=== PATIENT | female | born 1960 | race Caucasian/White ===

== ENCOUNTER 2017-08-18 06:07 | Outpatient (CLI) | payer OTHER, MEDICAID | END 2017-08-18 06:08 | disposition critical access hospital (66) | LOC: EMS 06:07 | PROVIDERS: ATTEND Surgery | DX: R06.02 Shortness of breath (principal); R04.2 Hemoptysis | CPT/HCPCS: A0425; A0427 ==

== ENCOUNTER 2017-08-18 07:11 | Inpatient (IN) | payer OTHER, MEDICAID ==
--- NOTE | 2017-08-18 07:36 | ED Physician Documentation ---
PD HPI URI - Stated complaint Stated Complaint: SOA - Chief complaint Chief Complaint: Resp - History obtained from History obtained from: Patient, EMS - History of Present Illness Timing - onset: Enter time (199), Today Timing duration: Hours Timing details: Abrupt onset, Still present Associated symptoms: Fever, Nasal congestion, Productive cough, Hemoptysis, Chest pain, Dyspnea Improves by: Rest, MDI/nebulizer, O2 Worsened by: Activity Similar symptoms before: Diagnosis (pneumonia) Recently seen: Not recently seen - Additional information Additional information: 56-year-old female is recently moved here from [place] has a history of pneumonia recurrent and COPD with PTSD. She is on a number of psychiatric medications and uses inhalers daily. She is developed acute cough beginning at 2:00 in the morning and she is coughing up some red blood. She has become short of breath and she has some improvement with oxygen as well as her rescue inhaler. She is certain she has pneumonia and feels that this morning she has a low-grade fever as well. Review of Systems Constitutional: reports: Fever Eyes: denies: Decreased vision Ears: denies: Ear pain Nose: reports: Rhinorrhea / runny nose, Congestion Throat: denies: Sore throat Cardiac: reports: Chest pain / pressure. denies: Palpitations, Pedal edema, Calf pain Respiratory: reports: Dyspnea, Cough, Wheezing GI: denies: Abdominal Pain, Nausea, Vomiting : reports: Incontinent. denies: Dysuria, Frequency PD PAST MEDICAL HISTORY - Past Medical History Cardiovascular: NM - Past Surgical History Past Surgical History: Yes General: Bowel surgery - Present Medications Home Medications: Ambulatory Orders Medication Instructions Recorded Confirmed Albuterol Sulfate [Albuterol 2 puffs INH Q4H PRN 10/17/13 08/18/17 Sulfate Hfa] Tiotropium [place] [Spiriva] 1 puffs INH DAILY 10/17/13 08/18/17 Atorvastatin Calcium 40 mg PO QPM 08/18/17 08/18/17 Dicyclomine [Bentyl] 10 mg PO TID PRN 08/18/17 08/18/17 Donepezil [Aricept] 5 mg PO QPM 08/18/17 08/18/17 Escitalopram Oxalate [Lexapro] 20 mg PO QPM 08/18/17 08/18/17 Fluticasone [Flonase] 1 sprays ULYSSES BID PRN 08/18/17 08/18/17 Fluticasone/Salmeterol [Advair 1 puffs INH BID 08/18/17 08/18/17 250-50 Diskus] Ibuprofen [Motrin] 800 mg PO TIDWM PRN 08/18/17 08/18/17 Indomethacin [Indocin] 25 mg PO BIDWM PRN 08/18/17 08/18/17 Metoprolol Tartrate [Lopressor] 25 mg PO QPM 08/18/17 08/18/17 Mirtazapine [Remeron] 15 mg PO HS 08/18/17 08/18/17 Morphine ER 60 mg PO 1400,2200 08/18/17 08/18/17 Morphine Sulfate [Morphine Sulfate 45 mg PO 0600 08/18/17 08/18/17 ER] Nitroglycerin [Nitrostat] 0.4 mg SL Q5MIN PRN 08/18/17 08/18/17 Omeprazole [PriLOSEC] 20 mg PO DAILY PRN 08/18/17 08/18/17 Pantoprazole Sodium [Protonix] 40 mg PO QDAC 08/18/17 08/18/17 Prazosin HCl [Minipress] 5 mg PO QPM 08/18/17 08/18/17 Prazosin HCl [Prazosin HCl] 2 mg PO DAILY 08/18/17 08/18/17 Topiramate [Topiramate] 50 mg PO QPM 08/18/17 08/18/17 Valacyclovir HCl [Valacyclovir] 500 mg PO DAILY 08/18/17 08/18/17 carBAMazepine ER [TEGretol XR] 200 mg PO BID 08/18/17 08/18/17 lamoTRIgine [Lamictal] 200 mg PO BID 08/18/17 08/18/17 tiZANidine [Zanaflex] 4 mg PO BID PRN 08/18/17 08/18/17 - Allergies Allergies/Adverse Reactions: Allergies Allergy/AdvReac Type Severity Reaction Status Date / Time diphtheria,tetanus,poliomyelitis Allergy Unknown Verified 10/17/13 16:44 va [Dip,Tet,Polio Vaccine] - Social History Does the pt smoke?: Yes Does the pt drink ETOH?: Yes PD ED PE NORMAL - Vitals Vital signs reviewed: Yes (hypertensive diastolic ) - General General: Alert and oriented X 3, Well developed/nourished - HEENT HEENT: Atraumatic, PERRL, EOMI, Ears normal, Other (dry mucous membranes ) - Neck Neck: Supple, no meningeal sign, No bony TTP - Cardiac Cardiac: RRR, No murmur - Respiratory Respiratory: Other (tachypneic at rest with rhonchi in the right base. ) - Back Back: No CVA TTP, No spinal TTP - Derm Derm: Normal color, Warm and dry, No rash - Extremities Extremities: No deformity, No edema - Neuro Neuro: No motor deficit, No sensory deficit Eye Opening: Spontaneous Motor: Obeys Commands Verbal: Oriented GCS Score: 15 - Psych Psych: Normal mood, Normal affect Results - Vitals Vitals: Vital Signs - 24 hr 08/18/17 08/18/17 07:21 09:44 Temperature 37.2 C Heart Rate 95 93 Respiratory 22 22 Rate Blood Pressure 118/87 H 119/59 L O2 Saturation 94 95 Oxygen O2 Source Nasal cannula Oxygen Flow Rate 4 - Labs Labs: Laboratory Tests 08/18/17 08/18/17 08/18/17 07:57 08:38 08:38 WBC 6.2 RBC 3.78 L Hgb 9.5 L Hct 31.0 L MCV 82.0 MCH 25.0 L MCHC 30.5 L RDW 17.4 H Plt Count 186 MPV 7.3 L Neut # (Auto) 5.3 Lymph # (Auto) 0.5 L [place] # (Auto) 0.4 Eos # (Auto) 0.0 Baso # (Auto) 0.0 Absolute Nucleated RBC 0.00 Nucleated RBC % 0.0 Sodium 137 Potassium 3.6 Chloride 106 Carbon Dioxide 23 Anion Gap 8.0 BUN 15 Creatinine 0.6 Estimated GFR (MDRD) 103 Glucose 115 H Calcium 7.9 L Total Bilirubin 0.4 AST 28 ALT 24 Alkaline Phosphatase 164 H Troponin I Total Protein 6.4 L Albumin 2.9 L Globulin 3.5 Albumin/Globulin Ratio 0.8 L Lipase 19 L Urine Color YELLOW Urine Clarity CLEAR Urine pH 7.0 Ur Specific [place] 1.015 Urine Protein NEGATIVE Urine Glucose (UA) NEGATIVE Urine Ketones NEGATIVE Urine Occult Blood NEGATIVE Urine Nitrite NEGATIVE Urine Bilirubin NEGATIVE Urine Urobilinogen 0.2 (NORMAL) Ur Leukocyte Esterase NEGATIVE Ur Microscopic Review NOT INDICATED Urine Culture Comments NOT INDICATED 08/18/17 08:38 WBC RBC Hgb Hct MCV MCH MCHC RDW Plt Count MPV Neut # (Auto) Lymph # (Auto) [place] # (Auto) Eos # (Auto) Baso # (Auto) Absolute Nucleated RBC Nucleated RBC % Sodium Potassium Chloride Carbon Dioxide Anion Gap BUN Creatinine Estimated GFR (MDRD) Glucose Calcium Total Bilirubin AST ALT Alkaline Phosphatase Troponin I < 0.04 Total Protein Albumin Globulin Albumin/Globulin Ratio Lipase Urine Color Urine Clarity Urine pH Ur Specific [place] Urine Protein Urine Glucose (UA) Urine Ketones Urine Occult Blood Urine Nitrite Urine Bilirubin Urine Urobilinogen Ur Leukocyte Esterase Ur Microscopic Review Urine Culture Comments - Rads (name of study) 2 veiw chest Radiology: Prelim report reviewed (Impression: 1. Multi lobar pneumonia largely throughout the right lung.), EMP read indepedently, See rad report Procedures - IVC sono (time) 0750 Bedside IVC sono: IVC measures (cm) (0.93), IVC collapsed c insp (cm) (complete) , Dehydration (est 1.5 liter deficit) PD MEDICAL DECISION MAKING - ED course Complexity details: reviewed old records, reviewed results, re-evaluated patient , considered differential, d/w patient ED course: 56-year-old female with COPD and recurrent pneumonia has developed pneumonia again and she is hypoxic on room air. She has the appearance of extensive pneumonia in the right lung and she is on a host of medications. She has recently moved to the area and has established care with a new primary care physician. - Sepsis Event Vital Signs: Vital Signs - 24 hr 08/18/17 08/18/17 07:21 09:44 Temperature 37.2 C Heart Rate 95 93 Respiratory 22 22 Rate Blood Pressure 118/87 H 119/59 L O2 Saturation 94 95 Oxygen O2 Source Nasal cannula Oxygen Flow Rate 4 Departure - Departure Disposition: [facility] DC/Xfer Clinical Impression: Pneumonia Qualifiers: Pneumonia type: due to unspecified organism Laterality: right Lung location: lower lobe of lung Qualified Code(s): J18.1 - Lobar pneumonia, unspecified organism Condition: Stable Discharge Date/Time: 08/18/17 11:25
[2017-08-18] MEDS ORDERED: DEXAMETHASONE 10 MG/ML VIAL PO STA (07:52)
[2017-08-18] MEDS ORDERED: SODIUM CHLORIDE 0.9% 1,000 ML IV ONE (07:56)
[2017-08-18 08:08] LABS: BILIRUBIN,URINE NEGATIVE (NEGATIVE); CLARITY,URINE CLEAR (CLEAR); GLUCOSE, URINE (UA) NEGATIVE (NEGATIVE); KETONES,URINE (UA) NEGATIVE (NEGATIVE); LEUKOCYTE ESTERASE, URINE NEGATIVE (NEGATIVE); NITRITE,URINE NEGATIVE (NEGATIVE); OCCULT BLOOD,URINE NEGATIVE (NEGATIVE); PROTEIN,URINE NEGATIVE (NEGATIVE); UROBILINOGEN,URINE 0.2 (NORMAL) E.U./dL (NORMAL)
[2017-08-18] MEDS ORDERED: CHERRY SYRUP 10 ML UDC PO ONE (08:20)
--- NOTE | 2017-08-18 08:30 | XRAY Report ---
Procedure Date: 08/18/2017 Accession Number: [id number] / [id number] Procedure: XR - Chest 2 View X-Ray CPT Code: 04105 FULL RESULT: EXAM: CHEST RADIOGRAPHY EXAM DATE: 08/18/2017 07:59 AM. CLINICAL HISTORY: R lower lung rhonchi. COMPARISON: None. TECHNIQUE: 2 views. FINDINGS: Lungs/Pleura: Extensive right lung airspace opacities largely in the right lower lobe. Left midlung airspace opacities are also present. Mediastinum: Heart size is normal. Aorta is tortuous. Other: Degenerative changes of the thoracic spine. Status post cholecystectomy. IMPRESSION: 1. Multilobar pneumonia largely throughout the right lung. RADIA
[2017-08-18 08:46] LABS: BASOPHILS % (AUTO) 0.6 %; EOSINOPHILS % (AUTO) 0.3 %; HGB - HEMOGLOBIN 9.5 g/dL (12.0-16.0); LYMPHOCYTES # (AUTO) 0.5 10^3/uL (1.5-3.5); LYMPHOCYTES % (AUTO) 7.4 %; MEAN CORPUSCULAR HGB CONC 30.5 g/dL (32.0-36.0); MEAN PLATELET VOLUME 7.3 fL (7.9-10.8); MONOCYTES # (AUTO) 0.4 10^3/uL (0.0-1.0); MONOCYTES % (AUTO) 6.5 %; NEUTROPHILS # (AUTO) 5.3 10^3/uL (1.5-6.6); NEUTROPHILS % (AUTO) 85.2 %; PLT - PLATELET COUNT 186 10^3/uL (130-450); RED BLOOD COUNT 3.78 10^6/uL (4.20-5.40); RED CELL DISTRIBUTION WIDTH 17.4 % (12.0-15.0); WHITE BLOOD COUNT 6.2 x10^3/uL (4.8-10.8)
[2017-08-18 09:00] LABS: ALBUMIN 2.9 g/dL (3.2-5.5); ALBUMIN/GLOBULIN RATIO 0.8 (1.0-2.2); BILIRUBIN,TOTAL 0.4 mg/dL (0.2-1.0); CALCIUM 7.9 mg/dL (8.5-10.3); CREATININE 0.6 mg/dL (0.4-1.0); TOTAL PROTEIN 6.4 g/dL (6.7-8.2)
[2017-08-18] MEDS ORDERED: ACETAMINOPHEN 325 MG TABLET PO PRN (10:34)
[2017-08-18] MEDS ORDERED: oxyCODONE 5 MG TABLET PO PRN (10:34)
[2017-08-18] MEDS ORDERED: ZOLPIDEM 5 MG TABLET PO PRN (10:34)
[2017-08-18] MEDS ORDERED: PROCHLORPERAZINE 10 MG/2 ML VIAL IVP PRN (10:34)
[2017-08-18] MEDS ORDERED: ONDANSETRON 4 MG/2 ML VIAL IVP PRN (10:34)
[2017-08-18] MEDS ORDERED: methylPREDNISolone SUCCINATE 40 MG/ML VIAL IVP SCH (11:00)
[2017-08-18] MEDS: oxyCODONE 5 MG TABLET PO PRN ×3 (11:39→20:32)
[2017-08-18] MEDS: SODIUM CHLORIDE 0.9% 1,000 ML IV SCH ×2 (11:51→18:32)
[2017-08-18] MEDS: cefTRIAXone 2 GM in SODIUM CHLORIDE 0.9% MINIBAG 100 ML IV SCH (12:55)
[2017-08-18] MEDS: AZITHROMYCIN INJ 500 MG in SODIUM CHLORIDE 0.9% 250 ML IV SCH (14:04)
[2017-08-18] MEDS: methylPREDNISolone SUCCINATE 40 MG/ML VIAL IVP SCH ×2 (14:56→20:30)
[2017-08-18] MEDS: IPRATROPIUM/ALBUTEROL 3 ML NEB INH SCH ×2 (15:09→20:16)
[2017-08-18] MEDS ORDERED: tiZANidine 4 MG TABLET PO PRN (15:37)
[2017-08-18] MEDS ORDERED: DICYCLOMINE 10 MG CAPSULE PO PRN (15:37)
[2017-08-18] MEDS ORDERED: FLUTICASONE NASAL SPRAY NAS PRN (15:37)
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
[2017-08-18] MEDS: MORPHINE ER 60 MG TABLET PO SCH ×2 (17:02→22:25)
[2017-08-18] MEDS: SODIUM CHLORIDE FLUSH 0.9% 10 ML SYRINGE IVP SCH (17:02)
[2017-08-18] MEDS: SACCHAROMYCES BOULARDII 250 MG CAPSULE PO SCH (17:02)
[2017-08-18] MEDS: MORPHINE 2 MG/ML SYRINGE IVP PRN ×2 (18:44→21:16)
[2017-08-18] MEDS: PRAZOSIN 1 MG CAPSULE PO SCH (20:31)
[2017-08-18] MEDS: carBAMazepine ER 200 MG TABLET PO SCH (20:32)
[2017-08-18] MEDS: TOPIRAMATE 25 MG TABLET PO SCH (20:32)
[2017-08-18] MEDS: DONEPEZIL 5 MG TABLET PO SCH (20:32)
[2017-08-18] MEDS: lamoTRIgine 100 MG TABLET PO SCH (20:33)
[2017-08-18] MEDS: METOPROLOL TARTRATE 25 MG TABLET PO SCH (20:33)
[2017-08-18] MEDS: ATORVASTATIN 40 MG TABLET PO SCH (20:33)
[2017-08-18] MEDS: ESCITALOPRAM 10 MG TABLET PO SCH (20:33)
[2017-08-18] MEDS: MIRTAZAPINE 15 MG TABLET PO SCH (20:33)
[2017-08-18] MEDS ORDERED: METOPROLOL SUCCINATE 25 MG TABLET PO SCH (21:00)
[2017-08-19] MEDS: SODIUM CHLORIDE FLUSH 0.9% 10 ML SYRINGE IVP SCH ×4 (01:48→20:21)
[2017-08-19] MEDS: oxyCODONE 5 MG TABLET PO PRN (04:37)
[2017-08-19] MEDS: MORPHINE ER 15 MG TABLET PO SCH (05:50)
[2017-08-19] MEDS: methylPREDNISolone SUCCINATE 40 MG/ML VIAL IVP SCH ×3 (05:51→20:21)
[2017-08-19] MEDS: SODIUM CHLORIDE FLUSH 0.9% 10 ML SYRINGE IVP PRN ×3 (05:51→13:31)
[2017-08-19 06:11] LABS: BASOPHILS % (AUTO) 0.1 %; HGB - HEMOGLOBIN 8.5 g/dL (12.0-16.0); LYMPHOCYTES # (AUTO) 1.2 10^3/uL (1.5-3.5); MEAN CORPUSCULAR HEMOGLOBIN 25.2 pg (27.0-31.0); MEAN CORPUSCULAR HGB CONC 30.6 g/dL (32.0-36.0); MEAN CORPUSCULAR VOLUME 82.2 fL (81.0-99.0); MEAN PLATELET VOLUME 7.6 fL (7.9-10.8); MONOCYTES # (AUTO) 0.4 10^3/uL (0.0-1.0); NEUTROPHILS # (AUTO) 8.5 10^3/uL (1.5-6.6); NEUTROPHILS % (AUTO) 83.9 %; PLT - PLATELET COUNT 191 10^3/uL (130-450); RED BLOOD COUNT 3.36 10^6/uL (4.20-5.40); RED CELL DISTRIBUTION WIDTH 17.1 % (12.0-15.0); WHITE BLOOD COUNT 10.2 x10^3/uL (4.8-10.8)
[2017-08-19 06:30] LABS: CREATININE 0.5 mg/dL (0.4-1.0)
[2017-08-19 06:41] LABS: % IRON SATURATION 3 % (20-50); IRON 10 ug/dL (28-170); TOTAL IRON BINDING CAPACITY 312 ug/dL (250-450); TRANSFERRIN 223 mg/dL (192-382)
[2017-08-19 06:55] LABS: FOLATE 13.92 ng/mL (5.90 - >24.8)
[2017-08-19] MEDS: IPRATROPIUM/ALBUTEROL 3 ML NEB INH SCH ×2 (07:50→11:15)
[2017-08-19] MEDS: SACCHAROMYCES BOULARDII 250 MG CAPSULE PO SCH ×2 (08:38→16:52)
[2017-08-19] MEDS: carBAMazepine ER 200 MG TABLET PO SCH ×2 (08:38→20:24)
[2017-08-19] MEDS: lamoTRIgine 100 MG TABLET PO SCH ×2 (08:39→20:26)
[2017-08-19] MEDS: PRAZOSIN 1 MG CAPSULE PO SCH ×2 (08:39→20:26)
[2017-08-19] MEDS: cefTRIAXone 2 GM in SODIUM CHLORIDE 0.9% MINIBAG 100 ML IV SCH (08:40)
[2017-08-19] MEDS: FAMOTIDINE 20 MG TABLET PO SCH (08:40)
[2017-08-19] MEDS: ENOXAPARIN 40 MG/0.4 ML SYRINGE SUBQ SCH (08:40)
[2017-08-19] MEDS: AZITHROMYCIN INJ 500 MG in SODIUM CHLORIDE 0.9% 250 ML IV SCH (08:50)
[2017-08-19] MEDS ORDERED: PAROXETINE HCL 60 MG PO SCH (09:00)
[2017-08-19] MEDS ORDERED: POLYETHYLENE GLYCOL 3350 17 GM PACKET PO SCH (09:00)
[2017-08-19] MEDS: MORPHINE 2 MG/ML SYRINGE IVP PRN ×3 (11:13→16:29)
[2017-08-19] MEDS: MORPHINE ER 60 MG TABLET PO SCH ×2 (13:37→21:36)
[2017-08-19] MEDS: IPRATROPIUM/ALBUTEROL 3 ML NEB INH PRN ×2 (16:00→21:11)
--- NOTE | 2017-08-19 16:19 | PROVIDER PROGRESS NOTE ---
Assessment/Plan - Problem List (1) CAP (community acquired pneumonia) Qualifiers: Laterality: right Lung location: lower lobe of lung Qualified Code(s): J18.1 - Lobar pneumonia, unspecified organism Assessment/Plan: Pt on empiric iv antibiotics. Will check a sputum sample. (2) COPD exacerbation Assessment/Plan: Continue nebs, steroids (3) Pleuritic chest pain Assessment/Plan: Pt reports that "this pneumonia feels different than previous ones, there is more pain". By this she means pleuritic CP. Will obtain a chest CT to eval for parenchymal lesions and for pulmonary embolism (4) Stool incontinence Assessment/Plan: Pt reports this she has had a gastric bypass and multiple bowel obstructions and has had constipation from narcotics. But she now has stool incontonence progressing more frequently over 1 year until during the past 2 weeks, she started to see stool in every Depends pair, which she has worn for urinary stress incontinence. She has no cramping, bloating or pain. Will check for diarrhea, C diff and culture stool. If negative, may get a surgical consult. (5) Chronic pain Qualifiers: Chronic pain type: chronic pain syndrome Qualified Code(s): G89.4 - Chronic pain syndrome Assessment/Plan: Continue her chronic pain meds (6) Cluster headache Assessment/Plan: Will give prn narcotics. (7) PTSD (post-traumatic stress disorder) Assessment/Plan: Continue her psych meds. (8) History of NE (myocardial infarction) Assessment/Plan: sl NTG prn anginal pain, since she has had 2-3 "small MIs" - Current Meds Current Meds: Current Medications Generic Name Dose Route Start Last Admin Trade Name Freq PRN Reason Stop Dose Admin Albuterol/Ipratropium 3 ml 08/18/17 10:34 08/19/17 16:00 Duoneb INH 3 ml RTQID PRN Administration Wheezing Atorvastatin Calcium 40 mg 08/18/17 21:00 08/18/17 20:33 Lipitor PO 40 mg QPM BOB Administration Carbamazepine 200 mg 08/18/17 21:00 08/19/17 08:38 Tegretol Xr PO 200 mg BID BOB Administration Donepezil HCl 5 mg 08/18/17 21:00 08/18/17 20:32 Aricept PO 5 mg QPM BOB Administration Enoxaparin Sodium 40 mg 08/19/17 09:00 08/19/17 08:40 Lovenox SUBQ 40 mg DAILY BOB Administration Escitalopram Oxalate 20 mg 08/18/17 21:00 08/18/17 20:33 Lexapro PO 20 mg QPM BOB Administration Famotidine 20 mg 08/19/17 09:00 08/19/17 08:40 Pepcid PO 20 mg DAILY BOB Administration Azithromycin 500 mg/ Sodium 250 mls @ 250 mls/hr 08/18/17 13:00 08/19/17 11: 07 Chloride IV Infused DAILY BOB Infusion Ceftriaxone Sodium 2 gm/ 100 mls @ 200 mls/hr 08/18/17 13:00 08/19/17 09:15 Sodium Chloride IV Infused DAILY BOB Infusion Lamotrigine 200 mg 08/18/17 21:00 08/19/17 08:39 Lamictal PO 200 mg BID BOB Administration Methylprednisolone 40 mg 08/18/17 14:00 08/19/17 13:31 Solu-Medrol (40mg Vial) IVP 40 mg TID BOB Administration Metoprolol Tartrate 25 mg 08/18/17 21:00 08/18/17 20:33 Lopressor PO 25 mg QPM BOB Administration Mirtazapine 15 mg 08/18/17 21:00 08/18/17 20:33 Remeron PO 15 mg HS BOB Administration Morphine Sulfate 2 mg 08/18/17 10:34 08/19/17 13:31 Morphine IVP 2 mg Q2H PRN Administration Pain 8 to 10 Morphine Sulfate 60 mg 08/18/17 16:00 08/19/17 13:37 Morphine Er PO 60 mg 1400,2200 BOB Administration Morphine Sulfate 45 mg 08/19/17 06:00 08/19/17 05:50 PO 45 mg 0600 BOB Administration Oxycodone HCl 10 mg 08/18/17 10:34 08/19/17 04:37 Roxicodone PO 10 mg Q4HR PRN Administration Pain 8 to 10 Polyethylene Glycol 17 gm 08/19/17 09:00 08/19/17 08:48 Miralax PO Not Given DAILY BOB Prazosin HCl 5 mg 08/18/17 21:00 08/18/17 20:31 Minipress PO 5 mg QPM BOB Administration Prazosin HCl 2 mg 08/19/17 09:00 08/19/17 08:39 Minipress PO 2 mg DAILY BOB Administration Prochlorperazine Edisylate 10 mg 08/18/17 10:34 08/18/17 21:39 Compazine Inj IVP 10 mg Q6HR PRN Administration Nausea / Vomiting Saccharomyces Savannai 250 mg 08/18/17 17:00 08/19/17 08:38 Florastor PO 250 mg BIDWM BOB Administration Sodium Chloride 10 ml 08/18/17 10:27 08/19/17 13:31 Normal Saline Flush 0.9% IVP 10 ml PRN PRN Administration NEEDED PER PROVIDER ORDERS Sodium Chloride 10 ml 08/18/17 17:00 08/19/17 08:47 Normal Saline Flush 0.9% IVP 10 ml 0100,0900,1700 BOB Administration Topiramate 50 mg 08/18/17 21:00 08/18/17 20:32 Topamax PO 50 mg QPM BOB Administration - Lab Result Fish Bone Diagrams: 08/19/17 05:32 08/19/17 05:32 - Additional Planning My Orders: My Active Orders 08/19/17 CUL, RESPIRATORY [RM] Routine CUL, RESPIRATORY [RM] Urgent CUL, STOOL [CULTURE, STOOL] [RM] Urgent Subjective - Subjective Patient Reports: Feeling Better, Other (Minimal cough, but has sputum that is bloody and rajesh blood. She reports 1-2 weeks of being incontinent of stool.) Objective Vital Signs: Vital Signs - 24 hr 08/18/17 08/18/17 08/18/17 17:01 19:36 20:17 Temperature 36.6 C Heart Rate 81 Heart Rate [ 85 76 Brachial] Respiratory 18 12 Rate Blood Pressure Blood Pressure 127/78 135/68 H [Right Brachial artery] O2 Saturation 97 08/18/17 08/19/17 08/19/17 20:33 00:57 07:50 Temperature 37.0 C Heart Rate 67 Heart Rate [ 67 Brachial] Respiratory 17 20 Rate Blood Pressure 132/78 H Blood Pressure 131/64 H [Right Brachial artery] O2 Saturation 97 08/19/17 08/19/17 08:00 11:15 Temperature 36.4 C L Heart Rate 70 Heart Rate [ 65 Brachial] Respiratory 18 14 Rate Blood Pressure Blood Pressure 131/68 H [Right Brachial artery] O2 Saturation 100 Oxygen O2 Source Nasal cannula I&O (Last 24 Hrs): Intake and Output Totals x24h 08/17/17 08/18/17 08/19/17 23:59 23:59 23:59 Intake Total 2328.333 2106 Output Total 2500 100 Balance -834.141 9926 General: Alert, Oriented x3 HEENT: PERRLA, Mucous membr. moist/pink Neck: Supple, No JVD Neuro: Non Focal Cardiovascular: Regular rate, No murmurs Respiratory: Other (R sided diminished BS, L clear, no wheezing.) Abdomen: Normal bowel sounds, Soft Extremities: No edema - Results Results: Laboratory Results WBC 10.2 x10^3/uL (4.8-10.8) 08/19/17 05:32 RBC 3.36 10^6/uL (4.20-5.40) L 08/19/17 05:32 Hgb 8.5 g/dL (12.0-16.0) L 08/19/17 05:32 Hct 27.6 % (37.0-47.0) L 08/19/17 05:32 MCV 82.2 fL (81.0-99.0) 08/19/17 05:32 MCH 25.2 pg (27.0-31.0) L 08/19/17 05:32 MCHC 30.6 g/dL (32.0-36.0) L 08/19/17 05:32 RDW 17.1 % (12.0-15.0) H 08/19/17 05:32 Plt Count 191 10^3/uL (130-450) 08/19/17 05:32 MPV 7.6 fL (7.9-10.8) L 08/19/17 05:32 Neut # (Auto) 8.5 10^3/uL (1.5-6.6) H 08/19/17 05:32 Lymph # (Auto) 1.2 10^3/uL (1.5-3.5) L 08/19/17 05:32 [place] # (Auto) 0.4 10^3/uL (0.0-1.0) 08/19/17 05:32 Eos # (Auto) 0.0 10^3/uL (0.0-0.7) 08/19/17 05:32 Baso # (Auto) 0.0 10^3/uL (0.0-0.1) 08/19/17 05:32 Absolute Nucleated RBC 0.00 x10^3/uL 08/19/17 05:32 Nucleated RBC % 0.0 /100WBC 08/19/17 05:32 Sodium 141 mmol/L (135-145) 08/19/17 05:32 Potassium 3.3 mmol/L (3.5-5.0) L 08/19/17 05:32 Chloride 113 mmol/L (101-111) H 08/19/17 05:32 Carbon Dioxide 23 mmol/L (21-32) 08/19/17 05:32 Anion Gap 5.0 (6-13) L 08/19/17 05:32 BUN 11 mg/dL (6-20) 08/19/17 05:32 Creatinine 0.5 mg/dL (0.4-1.0) 08/19/17 05:32 Estimated GFR (MDRD) 127 (>89) 08/19/17 05:32 Glucose 129 mg/dL (70-100) H 08/19/17 05:32 Calcium 8.0 mg/dL (8.5-10.3) L 08/19/17 05:32 Iron 10 ug/dL (28-170) L 08/19/17 05:32 TIBC 312 ug/dL (250-450) 08/19/17 05:32 % Saturation 3 % (20-50) L 08/19/17 05:32 Transferrin 223 mg/dL (192-382) 08/19/17 05:32 Ferritin 19.7 ng/mL (11.0-306.8) 08/19/17 05:32 Total Bilirubin 0.4 mg/dL (0.2-1.0) 08/18/17 08:38 AST 28 IU/L (10-42) 08/18/17 08:38 ALT 24 IU/L (10-60) 08/18/17 08:38 Alkaline Phosphatase 164 IU/L (42-121) H 08/18/17 08:38 Troponin I < 0.04 ng/mL (<0.49) 08/18/17 08:38 Total Protein 6.4 g/dL (6.7-8.2) L 08/18/17 08:38 Albumin 2.9 g/dL (3.2-5.5) L 08/18/17 08:38 Globulin 3.5 g/dL (2.1-4.2) 08/18/17 08:38 Albumin/Globulin Ratio 0.8 (1.0-2.2) L 08/18/17 08:38 Lipase 19 U/L (22-51) L 08/18/17 08:38 Vitamin B12 279 pg/mL (180-914) 08/19/17 05:32 Folate 13.92 ng/mL (5.90 - >24.8) 08/19/17 05:32 Urine Color YELLOW 08/18/17 07:57 Urine Clarity CLEAR (CLEAR) 08/18/17 07:57 Urine pH 7.0 PH (5.0-7.5) 08/18/17 07:57 Ur Specific [place] 1.015 (1.002-1.030) 08/18/17 07:57 Urine Protein NEGATIVE mg/dL (NEGATIVE) 08/18/17 07:57 Urine Glucose (UA) NEGATIVE mg/dL (NEGATIVE) 08/18/17 07:57 Urine Ketones NEGATIVE mg/dL (NEGATIVE) 08/18/17 07:57 Urine Occult Blood NEGATIVE (NEGATIVE) 08/18/17 07:57 Urine Nitrite NEGATIVE (NEGATIVE) 08/18/17 07:57 Urine Bilirubin NEGATIVE (NEGATIVE) 08/18/17 07:57 Urine Urobilinogen 0.2 (NORMAL) E.U./dL (NORMAL) 08/18/17 07:57 Ur Leukocyte Esterase NEGATIVE (NEGATIVE) 08/18/17 07:57 Ur Microscopic Review NOT INDICATED 08/18/17 07:57 Urine Culture Comments NOT INDICATED 08/18/17 07:57
[2017-08-19] MEDS ORDERED: NITROGLYCERIN SL 0.4 MG TABLET SL PRN (16:30)
[2017-08-19] MEDS ORDERED: oxyCOD/ACETAMIN 5 MG/325 MG TABLET PO PRN (17:03)
[2017-08-19] MEDS ORDERED: ACETAMINOPHEN 325 MG TABLET PO PRN (17:05)
[2017-08-19] MEDS ORDERED: IOPAMIDOL-300 100 ML VIAL ONE (17:30)
[2017-08-19] MEDS: oxyCOD/ACETAMIN 5 MG/325 MG TABLET PO PRN (18:27)
[2017-08-19] MEDS ORDERED: IOPAMIDOL-300 100 ML VIAL IVP ONE (18:53)
--- NOTE | 2017-08-19 19:21 | CT Report ---
Procedure Date: 08/19/2017 Accession Number: [id number] / [id number] Procedure: CT - Chest Angio (PE) CPT Code: FULL RESULT: EXAM: CT ANGIOGRAM CHEST EXAM DATE: 08/19/2017 06:46 PM. CLINICAL HISTORY: Chest pain COMPARISON: None. TECHNIQUE: Routine helical imaging was performed through the chest in the pulmonary arterial phase. IV Contrast: 80 cc Isovue 300. Reconstructions: Coronal 3-D MIP reconstructions.Sagittal and coronal. In accordance with CT protocol optimization, one or more of the following dose reduction techniques were utilized for this exam: automated exposure control, adjustment of mA and/or KV based on patient size, or use of iterative reconstructive technique. FINDINGS: Pulmonary Arteries: Diagnostic quality: Adequate through the segmental arteries. No evidence for acute or chronic pulmonary emboli. Lungs/Pleura: There is some patchy perihilar groundglass and reticular opacity within the right lung and within the left lower lobe. There is underlying parenchymal lucency which probably represents emphysema. No evidence of lobar infiltrate or effusion. No acute central airway abnormalities. No pneumothorax. Mediastinum: Heart size is normal. There are no enlarged axillary, supraclavicular, mediastinal, or hilar lymph nodes. Thoracic Aorta: Unremarkable. Upper Abdomen: Findings are detailed separately. Other: None. IMPRESSION: 1. No evidence of acute pulmonary embolism. 2. No evidence of thoracic aortic aneurysm or dissection. 3. There is patchy perihilar groundglass and reticular opacity within the right lung and within the medial aspect of the left lower lobe. Differential considerations include atypical infection, diffuse alveolar damage, and NSIP. 4. There is underlying parenchymal lucency which likely represents emphysema. 5. No pneumothorax. 6. Findings within the abdomen and pelvis are detailed separately. RADIA
[2017-08-19] MEDS: METOPROLOL TARTRATE 25 MG TABLET PO SCH (20:24)
[2017-08-19] MEDS: ATORVASTATIN 40 MG TABLET PO SCH (20:24)
[2017-08-19] MEDS: ESCITALOPRAM 10 MG TABLET PO SCH (20:24)
[2017-08-19] MEDS: DONEPEZIL 5 MG TABLET PO SCH (20:24)
[2017-08-19] MEDS: TOPIRAMATE 25 MG TABLET PO SCH (20:26)
[2017-08-19] MEDS: MIRTAZAPINE 15 MG TABLET PO SCH (20:26)
[2017-08-19] MEDS ORDERED: ALBUTEROL NEB 2.5 MG/3 ML INH PRN (22:23)
[2017-08-20] MEDS: SODIUM CHLORIDE FLUSH 0.9% 10 ML SYRINGE IVP PRN ×2 (00:39→06:25)
--- NOTE | 2017-08-20 04:16 | CT Report ---
Procedure Date: 08/19/2017 Accession Number: [id number] / [id number] Procedure: CT - Abdomen/Pelvis W/ CPT Code: FULL RESULT: EXAM: CT ABDOMEN AND PELVIS EXAM DATE: 08/19/2017 06:46 PM. CLINICAL HISTORY: STOOL INCONTINENCE. COMPARISONS: 11/26/2006. TECHNIQUE: Routine helical CT imaging was performed through the abdomen and pelvis. IV contrast: 100 cc Isovue-300. Enteric contrast: No. Reconstructions: Coronal and sagittal. In accordance with CT protocol optimization, one or more of the following dose reduction techniques were utilized for this exam: automated exposure control, adjustment of mA and/or KV based on patient size, or use of iterative reconstructive technique. FINDINGS: Lung Bases: Findings are detailed separately. Liver: Normal. No masses. Gallbladder/Bile Ducts: The gallbladder is surgically absent. There is mild bile duct dilatation which can be within normal limits status post cholecystectomy. No evidence of choledocholithiasis. Spleen: Normal. Pancreas: There is fatty replacement of the pancreas. Adrenal Glands: Normal. Kidneys: Normal. No masses or hydronephrosis. Peritoneal Cavity/Bowel: There is a small hiatal hernia. Patient has undergone partial gastrectomy. There is a segment of markedly dilated small bowel within the left upper quadrant. This could represent postsurgical change. There is moderate to large joint stool within colon. No intraperitoneal free air or free fluid. No enlarged mesenteric or retroperitoneal lymph nodes. No evidence of appendicitis. Pelvic Organs: Normal. The bladder and visualized pelvic organs are within normal limits. Vasculature: No aneurysms or other significant abnormality. Bones: No significant abnormality. Other: None. IMPRESSION: 1. There is moderate to large volume stool within colon. 2. There is a small hiatal hernia. Patient has undergone p prior gastric surgery, possibly gastric bypass. There is a segment of dilated small bowel within the left upper quadrant, possibly jejunojejunal anastomosis. There is no evidence of small bowel obstruction. 3. No acute solid abdominal organ abnormalities are seen. RADIA
[2017-08-20 06:09] LABS: BASOPHILS % (AUTO) 0.3 %; HGB - HEMOGLOBIN 8.7 g/dL (12.0-16.0); LYMPHOCYTES # (AUTO) 1.7 10^3/uL (1.5-3.5); LYMPHOCYTES % (AUTO) 16.6 %; MEAN CORPUSCULAR HEMOGLOBIN 25.1 pg (27.0-31.0); MEAN CORPUSCULAR HGB CONC 30.1 g/dL (32.0-36.0); MEAN CORPUSCULAR VOLUME 83.5 fL (81.0-99.0); MEAN PLATELET VOLUME 7.7 fL (7.9-10.8); MONOCYTES # (AUTO) 0.4 10^3/uL (0.0-1.0); MONOCYTES % (AUTO) 3.4 %; NEUTROPHILS # (AUTO) 8.2 10^3/uL (1.5-6.6); NEUTROPHILS % (AUTO) 79.7 %; PLT - PLATELET COUNT 204 10^3/uL (130-450); RED BLOOD COUNT 3.46 10^6/uL (4.20-5.40); RED CELL DISTRIBUTION WIDTH 17.2 % (12.0-15.0); WHITE BLOOD COUNT 10.2 x10^3/uL (4.8-10.8)
[2017-08-20 06:19] LABS: CALCIUM 8.6 mg/dL (8.5-10.3); CREATININE 0.7 mg/dL (0.4-1.0)
[2017-08-20] MEDS: oxyCOD/ACETAMIN 5 MG/325 MG TABLET PO PRN ×2 (06:24→14:13)
[2017-08-20] MEDS: methylPREDNISolone SUCCINATE 40 MG/ML VIAL IVP SCH (06:25)
[2017-08-20] MEDS: MORPHINE ER 15 MG TABLET PO SCH (06:25)
[2017-08-20] MEDS: IPRATROPIUM 0.2 MG/ML NEB INH SCH ×3 (07:24→13:24)
[2017-08-20] MEDS: MORPHINE 2 MG/ML SYRINGE IVP PRN (08:15)
[2017-08-20] MEDS: ENOXAPARIN 40 MG/0.4 ML SYRINGE SUBQ SCH (08:19)
[2017-08-20] MEDS: PRAZOSIN 1 MG CAPSULE PO SCH (08:20)
[2017-08-20] MEDS: SACCHAROMYCES BOULARDII 250 MG CAPSULE PO SCH (08:20)
[2017-08-20] MEDS: FAMOTIDINE 20 MG TABLET PO SCH (08:21)
[2017-08-20] MEDS: lamoTRIgine 100 MG TABLET PO SCH (08:21)
[2017-08-20] MEDS: carBAMazepine ER 200 MG TABLET PO SCH (08:21)
[2017-08-20] MEDS: cefTRIAXone 2 GM in SODIUM CHLORIDE 0.9% MINIBAG 100 ML IV SCH (08:23)
[2017-08-20] MEDS: SODIUM CHLORIDE FLUSH 0.9% 10 ML SYRINGE IVP SCH (08:29)
[2017-08-20] MEDS: AZITHROMYCIN INJ 500 MG in SODIUM CHLORIDE 0.9% 250 ML IV SCH (09:23)
[2017-08-20] MEDS ORDERED: predniSONE 10 MG TABLET PO SCH (10:00)
[2017-08-20] MEDS ORDERED: AZITHROMYCIN 250 MG TABLET PO SCH (10:00)
[2017-08-20] MEDS ORDERED: POLYETHYLENE GLYCOL 3350 17 GM PACKET PO PRN (10:29)
[2017-08-20] MEDS ORDERED: PSYLLIUM PACKET PO PRN (10:33)
[2017-08-20] MEDS ORDERED: levoFLOXacin 250 MG TABLET PO SCH (11:00)
[2017-08-20] MEDS: MORPHINE ER 60 MG TABLET PO SCH (14:02)
--- NOTE | 2017-08-20 15:31 | Discharge Plan ---
Discharge Plan Disposition: Home, Self Care Condition: Stable Prescriptions: oxyCODONE/ACET 5/325 [Percocet 5 mg/325 mg] 2 tab PO Q6HR PRN #10 tablet PRN Reason: Pain Albuterol 2.5 mg INH RTQ4H PRN #6 neb PRN Reason: Wheezing Blood Pressure Test Kit-Large [Blood Pressure Monitor] 1 each MC DAILY #1 kit Blood Sugar Diagnostic [Glucometer Strips] 1 each MC DAILY #30 strip Blood-Glucose Meter [Glucometer] 1 each MC DAILY #1 each Incontinence Pad,Liner,Disp [Pad For Women] 1 each MC TID PRN #90 each PRN Reason: Incontinence Ipratropium [Atrovent] 0.5 mg INH RTTID #12 neb Lancets 1 each MC DAILY #30 each Levofloxacin [Levaquin] 750 mg PO DAILY #4 tablet Methylprednisolone [Medrol] 4 mg PO DAILY #1 tab.ds.pk Psyllium [Metamucil] 1 packet PO DAILY #15 packet Diet: Regular Activity Restrictions: Activity as Tolerated Shower Restrictions: No Additional Instructions or Follow Up instructions: You are being treated for pneumonia with antibiotic Levaquin, please finish all the pills. You have been prescribed a Medrol-Dose Varinder, tapering schedule of steroids, please take this until done. You are being prescribed 2 different inhalation medications to use via nebulizer and a new Nebulizer. A new Glucometer and strips and lancets have been prescribed as well. Also, a blood pressure cuff has been ordered at your request. There is a prescription for several Percocet tablets to use as needed for severe pain. Metamucil has been prescribed to bulk up your stools, and incontinence pads as needed. Please resume all your pre-hospital medications. Please see your PCP in follow-up in the next 1-2 weeks and to get referrals to the specialists you need. No Smoking: If you smoke, Please STOP! Call for help. Follow-up with: Tani Stratton MD [Primary Care Provider] -
[2017-08-20 15:34] VITALS: BP 158/90
--- NOTE | 2017-08-21 12:29 | DISCHARGE SUMMARY ---
Physician: Keiry Beltrán MD DATE OF ADMISSION: 08/18/2017 DATE OF DISCHARGE: 08/20/2017 HISTORY OF PRESENT ILLNESS: This is a 56-year-old white female who moved to [facility] from [place] 1 month previously. She has a history of COPD, ex-smoker, fibromyalgia, gastric bypass and subsequent abdominal surgeries due to bowel obstruction and adhesions , history of pancreatitis, PTSD, anxiety and depression, MD, CAD, peripheral neuropathy of the right leg, hypoglycemia of unknown etiology, hypertension, hyperlipidemia, Alzheimer's and anemia. The patient presented to the emergency room with complaints of shortness of breath, cough with bloody sputum, fever and chills and wheezing. Workup showed that she had a right-sided multilobular pneumonia and a COPD exacerbation and was admitted for management of these. HOSPITAL COURSE AND DISCHARGE DIAGNOSES 1. Community acquired pneumonia, multilobar. The patient was put on empiric IV antibiotics. Sputum sample revealed moderate white cells, gram-positive cocci, gram-negative cocci, gram-negative bacilli and gram-positive bacilli. No bacteria in the sputum culture had been identified at the time of discharge, however. The patient's respiratory status improved over 24-48 hours, and she was discharged to complete a course of Levaquin 750 mg p.o. daily for an additional 5 days. 2. Chronic obstructive pulmonary disease exacerbation. The patient did complain of pleuritic chest pain. She underwent a chest CT with angiography, and this ruled out a pulmonary embolism. The CT also showed: normal heart size, patchy perihilar ground glass and reticular opacities in the right lung and the left lower lung, parenchymal lucency representing emphysema. She was placed on nebulizers, IV steroids, and had improvement of her wheezing and cough. The sputum, which was bloody, decreased to brown tinged. She was discharged with new prescriptions for nebulized medications and a new nebulizer. She did not require supplemental oxygen. I am ordering a home nebulizer machine for administration of albuterol p.r.n. to help treat her COPD. 3. Chronic pain and fibromyalgia. Patient was on long-acting morphine which was continued, and she required several additional doses of IV morphine and then oral Percocet. She was discharged with several tablets of Percocet p.r.n. and advised to resume her usual long-acting morphine dose. 4. Incontinence of stool. The patient reports that she has a 1- to 2-year history of infrequent incontinence of stool that has become more frequent over the past 2 weeks, requiring her to wear incontinence pads. There is no associated abdominal pain, bloating , or flatulence. She did have a CT of the abdomen during her stay here that showed: fatty replacement of the pancreas, gallbladder surgically absent, mild bile duct dilatation with no stones, liver normal, a small hiatal hernia, partial gastrectomy, markedly dilated small bowel within the left upper quadrant that presumably represented postsurgical change, moderate to large stool within the colon, no free air or free fluid, no enlarged lymph nodes or appendicitis. The patient was recommended to use bulk agents for her stool, and Metamucil was prescribed. Her narcotic use also likely causes the constipation and findings of retained stool, and she may be leaking around these constipated formed stools. Followup with a urologist, OCC THERAPIST, or her Wrapper And Preserver is advised. 5. Posttraumatic stress disorder and anxiety. The patient's medications were continued for this. 6. Old myocardial infarction history. The patient had 1 episode of angina, which was resolved with sublingual nitroglycerin used p.r.n. Her EKG during this event was entirely within normal limits. 7. Peripheral neuropathy. The patient reports right leg involvement. Her neuropathy medications were continued. 8. History of hypoglycemia. The patient requested a glucometer prescription ( because she lost it in her move from [place]). In discussion as to why she needed a glucometer and lancets and glucometer strips, she reported that there had been prior workup and no etiology was found for documented low blood sugars. She knows to take sugar and/or "cheese and peanut butter work even better" for management of these. 9. History of hypertension. Her medications were continued. 10. Alzheimer's history. The patient's Aricept was continued. 11. Anemia. The patient's admission hemoglobin was 9.5. She underwent lab tests that showed normal B12 of 279, normal folate of 13.9, but low iron of 10, TIBC of 312, and percent saturation low at 3. These values were noted after her discharge. No iron replacements were prescribed, therefore. Followup of this is advised, including evaluation for GI blood loss anemia. LABS AND IMAGING: reviewed and summarized above. ALLERGIES: DIPHTHERIA, TETANUS, POLIOMYELITIS VACCINES. DISCHARGE MEDICATIONS 1. Ativan 1 mg p.r.n. anxiety, 5 tablets were given. 2. Percocet 5/325 mg 2 tablets q.i.d. p.r.n., 10 tablets were prescribed 3. Albuterol nebulizer, new prescription 4. Metamucil, new prescription. 5. Incontinence pads, new prescription 6. Atrovent nebulizer, new prescription 7. Levaquin 750 mg daily for an additional 4 tablets 8. Sublingual nitroglycerin p.r.n. 9. Albuterol inhaler p.r.n. 10. Lipitor 40 mg at bedtime. 11. Tegretol XR 200 mg b.i.d. 12. Bentyl 10 mg t.i.d. p.r.n. 13. Aricept 5 mg every evening. 14. Lexapro 20 mg every evening. 15. Flonase nasal spray b.i.d. 16. Advair inhaler b.i.d. 17. Motrin 800 mg t.i.d. p.r.n. 18. Indocin 25 mg b.i.d. p.r.n. 19. Lamictal, 200 mg b.i.d. 20. Medrol Dosepak on a tapering schedule. 21. Lopressor tartrate 25 mg q.p.m. 22. Remeron 15 mg at bedtime. 23. Morphine ER 60 mg and 45 mg as she took previously. 24. Prilosec 20 mg daily. 25. Minipress 5 mg in the p.m., 2 mg in the a.m. 26. Metamucil [id number] daily. 27. Spiriva inhaler daily. 28. Zanaflex 4 mg b.i.d. p.r.n. 29. Topiramate 50 mg every evening. 30. Valacyclovir 500 mg daily. CONDITION AT DISCHARGE: Stable. PHYSICAL EXAMINATION AT DISCHARGE VITAL SIGNS: Blood pressure 150/90, heart rate 58, in sinus rhythm, afebrile, room air saturation 92%. HEENT: Unremarkable. NECK: Without JVD. She has many tattoos. CHEST: Clear bilaterally without wheezing or rales. HEART: Heart sounds normal. ABDOMEN: Soft, nontender, with normal bowel sounds. No organomegaly. EXTREMITIES: Without clubbing, cyanosis, or edema. NEUROLOGIC: Intact. FOLLOWUP: With her PCP in 1-2 weeks, and she needs referrals to her different specialists initiated for her here in the [facility]. CODE STATUS: FULL CODE. Time required to complete this entire discharge, chart review, prescription orders, and dictation: 70 minutes. cc: Tani Stratton MD TD: 08/21/2017 10:45 [email or web address]
== END 2017-08-20 16:45 | disposition home or self-care (01) | DRG 190 ==
LOC: EDUNIT# → ED 07:11 → MS2 10:27
PROVIDERS: ADMIT Internal Medicine; ATTEND Internal Medicine
DX: J44.0 Chronic obstructive pulmonary disease with (acute) lower respiratory infection (principal); J15.5 Pneumonia due to Escherichia coli; J15.8 Pneumonia due to other specified bacteria; J44.1 Chronic obstructive pulmonary disease with (acute) exacerbation; G89.29 Other chronic pain; M54.9 Dorsalgia, unspecified; M79.7 Fibromyalgia; R15.9 Full incontinence of feces; F43.10 Post-traumatic stress disorder, unspecified; F41.9 Anxiety disorder, unspecified; G62.9 Polyneuropathy, unspecified; E16.2 Hypoglycemia, unspecified; I10 Essential (primary) hypertension; G30.9 Alzheimer's disease, unspecified; F02.80 Dementia in other diseases classified elsewhere, unspecified severity, without behavioral disturbance, psychotic disturbance, mood disturbance, and anxiety; D64.9 Anemia, unspecified; E78.5 Hyperlipidemia, unspecified; I25.10 Atherosclerotic heart disease of native coronary artery without angina pectoris; R32 Unspecified urinary incontinence; K21.9 Gastro-esophageal reflux disease without esophagitis; K44.9 Diaphragmatic hernia without obstruction or gangrene; G43.909 Migraine, unspecified, not intractable, without status migrainosus; Z87.19 Personal history of other diseases of the digestive system; Z98.84 Bariatric surgery status; Z87.891 Personal history of nicotine dependence; I25.2 Old myocardial infarction; Z87.01 Personal history of pneumonia (recurrent); Z79.51 Long term (current) use of inhaled steroids; Z79.899 Other long term (current) drug therapy
CPT/HCPCS: 36415; 71046; 71275; 74177; 80048; 80053; 81001; 81003; 82607; 82728; 82746; 83540; 83690; 84466; 84484; 85025; 87040; 87070; 87077; 87086; 87181; 87205; 93005; 94640; 96360; 96361; 99283; 99284

== ENCOUNTER 2018-02-05 08:38 | Emergency (ER) | payer OTHER, MEDICAID ==
--- NOTE | 2018-02-05 09:01 | ED Physician Documentation ---
PD HPI DYSPNEA - Stated complaint Stated Complaint: COUGHING BLOOD - Chief complaint Chief Complaint: Resp - History obtained from History obtained from: Patient, Family (Sister) - History of Present Illness Timing - onset: How many days ago (2 or 3 days.) Associated symptoms: Cough, Hemoptysis Similar symptoms before: Diagnosis (Pneumonia) - Additional information Additional information: The patient is a 57-year-old female with a history of emphysematous COPD and pneumonia, who presents with cough and hemoptysis. She has had cough and fatigue for the past 2 or 3 days, and developed hemoptysis this morning. She reports associated shortness of breath. She denies fever or chest pain. She has a history of similar symptoms in the past. Review of her medical record reveals hospitalization in July 2017 with pneumonia. She is concerned about recurrent episode of pneumonia. On further review of systems she reports headache. She denies sore throat, abdominal pain, nausea or vomiting, or dysuria. In addition to COPD, her past medical history is significant for CAD and for fibromyalgia and chronic pain syndrome, for which she is on extended release morphine. Review of Systems Constitutional: reports: Fatigue. denies: Fever Eyes: denies: Irritation Ears: denies: Tinnitus/ringing Nose: denies: Congestion Throat: denies: Sore throat Cardiac: denies: Chest pain / pressure Respiratory: reports: Dyspnea, Cough, Hemoptysis GI: denies: Abdominal Pain, Nausea, Vomiting : denies: Dysuria Skin: denies: Rash Musculoskeletal: reports: Back pain (Chronically.) Neurologic: reports: Headache. denies: Focal weakness, Numbness PD PAST MEDICAL HISTORY - Past Medical History Cardiovascular: [place] Respiratory: COPD, Pneumonia, Shortness of breath Neuro: Alzhiemer's, Headaches, Migraines Endocrine/Autoimmune: None GI: GERD, Hiatal hernia, Pancreatitis : Incontinence Psych: Depression, Anxiety, Post traumatic stress disorder Musculoskeletal: Osteoarthritis, Fibromyalgia, Chronic back pain Derm: None - Past Surgical History Past Surgical History: Yes General: Bowel surgery - Present Medications Home Medications: Ambulatory Orders Medication Instructions Recorded Confirmed Albuterol Sulfate [Albuterol 2 puffs INH Q4H PRN 10/17/13 08/18/17 Sulfate Hfa] Tiotropium [place] [Spiriva] 1 puffs INH DAILY 10/17/13 08/18/17 Atorvastatin Calcium 40 mg PO QPM 08/18/17 08/18/17 Dicyclomine [Bentyl] 10 mg PO TID PRN 08/18/17 08/18/17 Donepezil [Aricept] 5 mg PO QPM 08/18/17 08/18/17 Escitalopram Oxalate [Lexapro] 20 mg PO QPM 08/18/17 08/18/17 Fluticasone [Flonase] 1 sprays ULYSSES BID PRN 08/18/17 08/18/17 Fluticasone/Salmeterol [Advair 1 puffs INH BID 08/18/17 08/18/17 250-50 Diskus] Ibuprofen [Motrin] 800 mg PO TIDWM PRN 08/18/17 08/18/17 Indomethacin [Indocin] 25 mg PO BIDWM PRN 08/18/17 08/18/17 Metoprolol Tartrate [Lopressor] 25 mg PO QPM 08/18/17 08/18/17 Mirtazapine [Remeron] 15 mg PO HS 08/18/17 08/18/17 Morphine Sulfate [Morphine Sulfate 30 mg PO 0600 08/18/17 08/18/17 ER] Nitroglycerin [Nitrostat] 0.4 mg SL Q5MIN PRN 08/18/17 08/18/17 Omeprazole [PriLOSEC] 20 mg PO DAILY PRN 08/18/17 08/18/17 Pantoprazole Sodium [Protonix] 40 mg PO QDAC 08/18/17 08/18/17 Prazosin HCl [Minipress] 5 mg PO QPM 08/18/17 08/18/17 Topiramate 50 mg PO QPM 08/18/17 08/18/17 Valacyclovir HCl [Valacyclovir] 500 mg PO DAILY 08/18/17 08/18/17 carBAMazepine ER [TEGretol XR] 200 mg PO BID 08/18/17 08/18/17 lamoTRIgine [Lamictal] 200 mg PO BID 08/18/17 08/18/17 tiZANidine [Zanaflex] 4 mg PO BID PRN 08/18/17 08/18/17 Albuterol 2.5 mg INH RTQ4H PRN #6 neb 08/20/17 Blood Pressure Test Kit-Large 1 each MC DAILY #1 kit 08/20/17 [Blood Pressure Monitor] Blood Sugar Diagnostic [Glucometer 1 each MC DAILY #30 strip 08/20/17 Strips] Blood-Glucose Meter [Glucometer] 1 each MC DAILY #1 each 08/20/17 Incontinence Pad,Liner,Disp [Pad 1 each MC TID PRN #90 each 08/20/17 For Women] Ipratropium [Atrovent] 0.5 mg INH RTTID #12 neb 08/20/17 Lancets 1 each MC DAILY #30 each 08/20/17 Levofloxacin [Levaquin] 750 mg PO DAILY #4 tablet 08/20/17 Lorazepam [Ativan] 1 mg PO BID PRN #8 tablet 08/20/17 Methylprednisolone [Medrol] 4 mg PO DAILY #1 tab.ds.pk 08/20/17 Psyllium [Metamucil] 1 packet PO DAILY #15 packet 08/20/17 oxyCODONE/ACET 5/325 [Percocet 5 2 tab PO Q6HR PRN #10 tablet 08/20/17 mg/325 mg] ARIPiprazole [Abilify] 5 mg 02/05/18 Aspirin 02/05/18 Atorvastatin [Lipitor] 40 mg 02/05/18 Azithromycin [Zithromax] 250 mg PO DAILY #6 tablet 02/05/18 Ondansetron [Ondansetron Odt] 02/05/18 Quetiapine Fumarate 100 mg PO 02/05/18 guaiFENesin/CODEINE [Robitussin AC] 5 ml PO Q6H PRN #60 ml 02/05/18 traZODone [Desyrel] 02/05/18 - Allergies Allergies/Adverse Reactions: Allergies Allergy/AdvReac Type Severity Reaction Status Date / Time diphtheria,tetanus,poliomyelitis Allergy Unknown Verified 02/05/18 08:51 va [Dip,Tet,Polio Vaccine] - Social History Does the pt smoke?: No Smoking Status: Former smoker Does the pt drink ETOH?: Yes - POLST POLST Status: Full Code PD ED PE NORMAL - Vitals Vital signs reviewed: Yes (Borderline systolic hypertension.) - General General: Alert and oriented X 3, Well developed/nourished, Other (No obvious distress, speaking in full sentences.) - HEENT HEENT: Atraumatic, Pharynx benign - Neck Neck: Supple, no meningeal sign, No adenopathy, No JVD - Cardiac Cardiac: RRR, No murmur - Respiratory Respiratory: No respiratory distress, Other (Faint inspiratory crackles on left, posteriorly.) - Abdomen Abdomen: Soft, Non tender - Back Back: No CVA TTP, Other (Small area of ecchymosis, about 2 x 4 cm, over right posterior iliac crest. (States she banged into the handle of her bathroom door.)) - Derm Derm: No rash - Extremities Extremities: No edema, No calf tenderness / cord - Neuro Neuro: Alert and oriented X 3, No motor deficit, No sensory deficit, Normal speech Results - Vitals Vitals: Vital Signs - 24 hr 02/05/18 02/05/18 08:48 10:29 Temperature 36.7 C 37.1 C Heart Rate 91 68 Respiratory 18 18 Rate Blood Pressure 137/61 H 122/66 O2 Saturation 93 94 Oxygen O2 Source Room air - Labs Labs: Laboratory Tests 02/05/18 02/05/18 02/05/18 09:05 09:05 09:05 WBC 8.4 RBC 3.58 L Hgb 8.9 L Hct 28.8 L MCV 80.3 L MCH 24.9 L MCHC 31.0 L RDW 20.2 H Plt Count 202 MPV 7.0 L Neut # (Auto) 6.8 H Lymph # (Auto) 1.0 L [place] # (Auto) 0.5 Eos # (Auto) 0.1 Baso # (Auto) 0.0 Absolute Nucleated RBC 0.00 Nucleated RBC % 0.0 Manual Slide Review Indicated Platelet Estimate NORMAL (130-450,000) RBC Morph Micro Appear 1+ HYPOCHROMASIA Sodium 137 Potassium 3.4 L Chloride 108 Carbon Dioxide 22 Anion Gap 7.0 BUN 13 Creatinine 0.7 Estimated GFR (MDRD) 86 L Glucose 107 H Calcium 8.5 Total Bilirubin 0.3 AST 31 ALT 28 Alkaline Phosphatase 178 H Troponin I < 0.04 Total Protein 6.8 Albumin 3.2 Globulin 3.6 Albumin/Globulin Ratio 0.9 L Lipase 16 L - Rads (name of study) 2-view CXR Radiology: Prelim report reviewed, EMP read contemporaneously, See rad report (New left lung airspace disease.) PD MEDICAL DECISION MAKING - ED course Complexity details: reviewed old records, reviewed results, re-evaluated patient, considered differential, d/w patient, d/w family ED course: ,The patient's presentation is most consistent with new left lower lobe pneumonia, seen on chest x-ray, and new when compared to previous chest x-ray from July 2017. That is the most likely cause for her hemoptysis. She is not hypoxic, with a pulse oximetry in the 93-96% range on room air. It occasionally dips briefly to 89 or 90%, but quickly comes back up into the mid 90s. Her white count is in the normal range at 8.9. She is quite anemic, with a hemoglobin of 9.5. This is unchanged from her previous hemoglobin levels, indicating chronic anemia. Treatment in the emergency department included administration of ceftriaxone 1 g IM and azithromycin 500 mg orally. She is being discharged with prescription for azithromycin. I discussed with her and her sister the diagnosis, expected course of illness, antibiotic treatment and outpatient follow-up, as well as potentially worrisome signs or symptoms that should prompt reevaluation in the emergency department. Departure - Departure Disposition: 01 Home, Self Care Clinical Impression: Pneumonia Qualifiers: Pneumonia type: due to unspecified organism Laterality: left Lung location: lower lobe of lung Qualified Code(s): J18.1 - Lobar pneumonia, unspecified organism Condition: Stable Instructions: ED Pneumonia Adult Follow-Up: Tani Stratton MD [Credentialed Staff Provider] - Prescriptions: Azithromycin [Zithromax] 250 mg PO DAILY #6 tablet guaiFENesin/CODEINE [Robitussin AC] 5 ml PO Q6H PRN #60 ml PRN Reason: Cough Comments: Take Zithromax daily as prescribed. Continue your inhalers as previously prescribed. You can use Tylenol or ibuprofen if needed for fever or discomfort. Follow-up with your primary physician within 1 week. Call to schedule an appointment. Return to the emergency department if you develop increasing difficulty breathing, or otherwise worsening symptoms. Discharge Date/Time: 02/05/18 10:42
[2018-02-05 09:15] LABS: BASOPHILS % (AUTO) 0.6 %; EOSINOPHILS # (AUTO) 0.1 10^3/uL (0.0-0.7); HGB - HEMOGLOBIN 8.9 g/dL (12.0-16.0); LYMPHOCYTES % (AUTO) 11.9 %; MEAN CORPUSCULAR HEMOGLOBIN 24.9 pg (27.0-31.0); MEAN CORPUSCULAR VOLUME 80.3 fL (81.0-99.0); MONOCYTES # (AUTO) 0.5 10^3/uL (0.0-1.0); MONOCYTES % (AUTO) 5.6 %; NEUTROPHILS # (AUTO) 6.8 10^3/uL (1.5-6.6); NEUTROPHILS % (AUTO) 80.9 %; PLT - PLATELET COUNT 202 10^3/uL (130-450); RED BLOOD COUNT 3.58 10^6/uL (4.20-5.40); RED CELL DISTRIBUTION WIDTH 20.2 % (12.0-15.0); WHITE BLOOD COUNT 8.4 x10^3/uL (4.8-10.8)
[2018-02-05 09:26] LABS: ALBUMIN 3.2 g/dL (3.2-5.5); ALBUMIN/GLOBULIN RATIO 0.9 (1.0-2.2); BILIRUBIN,TOTAL 0.3 mg/dL (0.2-1.0); CALCIUM 8.5 mg/dL (8.5-10.3); CREATININE 0.7 mg/dL (0.4-1.0); TOTAL PROTEIN 6.8 g/dL (6.7-8.2)
--- NOTE | 2018-02-05 09:43 | XRAY Report ---
Reason: dyspnea, cough with bloody sputum. Procedure Date: 02/05/2018 Accession Number: [id number] / [id number] Procedure: XR - Chest 2 View X-Ray CPT Code: 67302 FULL RESULT: EXAM: CHEST RADIOGRAPHY EXAM DATE: 02/05/2018 09:23 AM. CLINICAL HISTORY: Dyspnea, cough with bloody sputum. COMPARISON: Chest 2 views 08/18/2017 7:59 AM. TECHNIQUE: 2 views. FINDINGS: Lungs/Pleura: Interval development of a left lung pulmonary infiltrate. Previously seen patchy opacities in the right lung have resolved in the interval. There is no pneumothorax or sizable pleural effusion. Mediastinum: The cardiomediastinal silhouette is stable with a tortuous aorta. Other: Stable surgical clips projecting over the upper abdomen. IMPRESSION: New left lung airspace disease. Resolution of previously seen right lung airspace disease. RADIA
[2018-02-05 09:51] LABS: PLATELET ESTIMATE, MANUAL NORMAL (130-450,000) (NORMAL)
[2018-02-05] MEDS ORDERED: cefTRIAXone 1 GM in SODIUM CHLORIDE 0.9% MINIBAG 100 ML IV STA (10:01)
[2018-02-05] MEDS ORDERED: AZITHROMYCIN 250 MG TABLET PO STA (10:01)
[2018-02-05] MEDS ORDERED: LIDOCAINE 1% 2 ML VIAL SUBQ ONE (10:18)
[2018-02-05] MEDS ORDERED: cefTRIAXone 1 GM VIAL IM STA (10:18)
[2018-02-05 10:31] VITALS: BP 122/66
== END 2018-02-05 10:42 | disposition home or self-care (01) ==
LOC: ED 08:38
DX: J18.1 Lobar pneumonia, unspecified organism (principal)
CPT/HCPCS: 36415; 71046; 80053; 83690; 84484; 85025; 96372; 99283; 99284; A9270

== ENCOUNTER 2018-02-07 21:08 | Outpatient (CLI) | payer OTHER, MEDICAID | END 2018-02-07 23:59 | disposition critical access hospital (66) | LOC: EMS 21:08 | PROVIDERS: ATTEND Surgery | DX: R06.02 Shortness of breath (principal); R53.1 Weakness; R07.9 Chest pain, unspecified; R05 Cough | CPT/HCPCS: A0425; A0427 ==

== ENCOUNTER 2018-02-07 21:49 | Emergency (ER) | payer OTHER, MEDICAID ==
--- NOTE | 2018-02-07 21:48 | ED Physician Documentation ---
PD HPI DYSPNEA - Stated complaint Stated Complaint: SOA - History obtained from History obtained from: Patient, EMS - History of Present Illness Timing - onset: How many days ago (3-4) Timing - duration: Days Timing - details: Gradual onset, Waxing and waning Pain level now: 6 (chest pain) Improved by: Rest Worsened by: Exertion, Coughing Associated symptoms: Cough, Hemoptysis, Chest pain / discomfort. No: Fever, Wheezing, Palpitations, Diaphoresis, Bilateral edema, Unilateral edema Similar symptoms before: Diagnosis (pneumonia) Recently seen: Emergency Dept - Additional information Additional information: T+R from this ED 2 days ago for pneumonia. At that time, she was given IV rocephin and rx for zithromax. She called the ED the following day requesting a change in the antibiotic, as she was having nausea and diarrhea and she attributed this to the antibiotic. The antibiotic was changed from zithromax to levaquin, and she has had two doses thus far (yesterday and today). She returns to ED by ambulance because she feels worse; specifically, she feels increased dyspnea and increased cough. She has chest pain that is temporally associated with coughing. Review of Systems Constitutional: denies: Fever, Chills, Sweats Cardiac: reports: Chest pain / pressure. denies: Palpitations, Pedal edema, Calf pain Respiratory: reports: Dyspnea, Cough, Hemoptysis. denies: Wheezing GI: reports: Nausea, Diarrhea. denies: Abdominal Pain, Vomiting : denies: Dysuria, Frequency Skin: denies: Rash Musculoskeletal: denies: Extremity swelling Neurologic: denies: Generalized weakness, Focal weakness, Numbness, Headache PD PAST MEDICAL HISTORY - Past Medical History Past Medical History: Yes Respiratory: COPD, Pneumonia - Past Surgical History Past Surgical History: Yes General: Bowel surgery - Present Medications Home Medications: Ambulatory Orders Medication Instructions Recorded Confirmed Albuterol Sulfate [Albuterol 2 puffs INH Q4H PRN 10/17/13 08/18/17 Sulfate Hfa] Tiotropium [place] [Spiriva] 1 puffs INH DAILY 10/17/13 08/18/17 Atorvastatin Calcium 40 mg PO QPM 08/18/17 08/18/17 Dicyclomine [Bentyl] 10 mg PO TID PRN 08/18/17 08/18/17 Donepezil [Aricept] 5 mg PO QPM 08/18/17 08/18/17 Escitalopram Oxalate [Lexapro] 20 mg PO QPM 08/18/17 08/18/17 Fluticasone [Flonase] 1 sprays ULYSSES BID PRN 08/18/17 08/18/17 Fluticasone/Salmeterol [Advair 1 puffs INH BID 08/18/17 08/18/17 250-50 Diskus] Ibuprofen [Motrin] 800 mg PO TIDWM PRN 08/18/17 08/18/17 Indomethacin [Indocin] 25 mg PO BIDWM PRN 08/18/17 08/18/17 Metoprolol Tartrate [Lopressor] 25 mg PO QPM 08/18/17 08/18/17 Mirtazapine [Remeron] 15 mg PO HS 08/18/17 08/18/17 Morphine Sulfate [Morphine Sulfate 30 mg PO 0600 08/18/17 08/18/17 ER] Nitroglycerin [Nitrostat] 0.4 mg SL Q5MIN PRN 08/18/17 08/18/17 Omeprazole [PriLOSEC] 20 mg PO DAILY PRN 08/18/17 08/18/17 Pantoprazole Sodium [Protonix] 40 mg PO QDAC 08/18/17 08/18/17 Prazosin HCl [Minipress] 5 mg PO QPM 08/18/17 08/18/17 Topiramate 50 mg PO QPM 08/18/17 08/18/17 Valacyclovir HCl [Valacyclovir] 500 mg PO DAILY 08/18/17 08/18/17 carBAMazepine ER [TEGretol XR] 200 mg PO BID 08/18/17 08/18/17 lamoTRIgine [Lamictal] 200 mg PO BID 08/18/17 08/18/17 tiZANidine [Zanaflex] 4 mg PO BID PRN 08/18/17 08/18/17 Albuterol 2.5 mg INH RTQ4H PRN #6 neb 08/20/17 Blood Pressure Test Kit-Large 1 each DAILY #1 kit 08/20/17 [Blood Pressure Monitor] Blood Sugar Diagnostic [Glucometer 1 each DAILY #30 strip 08/20/17 Strips] Blood-Glucose Meter [Glucometer] 1 each DAILY #1 each 08/20/17 Incontinence Pad,Liner,Disp [Pad 1 each MC TID PRN #90 each 08/20/17 For Women] Ipratropium [Atrovent] 0.5 mg INH RTTID #12 neb 08/20/17 Lancets 1 each MC DAILY #30 each 08/20/17 Levofloxacin [Levaquin] 750 mg PO DAILY #4 tablet 08/20/17 Lorazepam [Ativan] 1 mg PO BID PRN #8 tablet 08/20/17 Methylprednisolone [Medrol] 4 mg PO DAILY #1 tab.ds.pk 08/20/17 Psyllium [Metamucil] 1 packet PO DAILY #15 packet 08/20/17 oxyCODONE/ACET 5/325 [Percocet 5 2 tab PO Q6HR PRN #10 tablet 08/20/17 mg/325 mg] ARIPiprazole [Abilify] 5 mg 02/05/18 Aspirin 02/05/18 Atorvastatin [Lipitor] 40 mg 02/05/18 Azithromycin [Zithromax] 250 mg PO DAILY #6 tablet 02/05/18 Ondansetron [Ondansetron Odt] 02/05/18 Quetiapine Fumarate 100 mg PO 02/05/18 guaiFENesin/CODEINE [Robitussin AC] 5 ml PO Q6H PRN #60 ml 02/05/18 traZODone [Desyrel] 02/05/18 guaiFENesin/CODEINE [Robitussin AC] 5 - 10 ml PO Q6H PRN #100 udc 02/07/18 - Allergies Allergies/Adverse Reactions: Allergies Allergy/AdvReac Type Severity Reaction Status Date / Time diphtheria,tetanus,poliomyelitis Allergy Unknown Verified 02/07/18 21:54 va [Dip,Tet,Polio Vaccine] - Living Situation Living Arrangement: reports: At home PD ED PE NORMAL - Vitals Vital signs reviewed: Yes - General General: Alert and oriented X 3, No acute distress, Well developed/nourished - HEENT HEENT: Moist mucous membranes - Neck Neck: Supple, no meningeal sign - Cardiac Cardiac: RRR, No murmur - Respiratory Respiratory: No respiratory distress, Other (mild left-sided rhonchi, mid/lower lung [place]) - Abdomen Abdomen: Soft, Non tender - Derm Derm: Normal color, Warm and dry - Extremities Extremities: No edema - Neuro Neuro: Alert and oriented X 3 Results - Vitals Vitals: Vital Signs - 24 hr 02/07/18 02/08/18 21:50 00:03 Temperature 36.5 C 36.6 C Heart Rate 77 62 Respiratory 22 18 Rate Blood Pressure 163/95 H 157/111 H O2 Saturation 95 97 Oxygen O2 Source Room air - Labs Labs: Laboratory Tests 02/07/18 02/07/18 02/07/18 22:15 22:15 22:15 WBC 4.3 L RBC 3.47 L Hgb 8.6 L Hct 28.2 L MCV 81.2 MCH 24.6 L MCHC 30.3 L RDW 20.1 H Plt Count 221 MPV 7.1 L Neut # (Auto) 2.8 Lymph # (Auto) 1.0 L [place] # (Auto) 0.3 Eos # (Auto) 0.1 Baso # (Auto) 0.0 Absolute Nucleated RBC 0.00 Nucleated RBC % 0.0 Manual Slide Review Indicated WBC Morphology NORMAL APPEARANCE Platelet Estimate NORMAL (130-450,000) Platelet Morphology NORMAL APPEARANCE RBC Morph Micro Appear 1+ TEARDROP CELLS Sodium 140 Potassium 3.7 Chloride 112 H Carbon Dioxide 21 Anion Gap 7.0 BUN 10 Creatinine 0.5 Estimated GFR (MDRD) 127 Glucose 96 Lactic Acid Calcium 8.0 L Troponin I < 0.04 B-Natriuretic Peptide 02/07/18 02/07/18 22:15 22:15 WBC RBC Hgb Hct MCV MCH MCHC RDW Plt Count MPV Neut # (Auto) Lymph # (Auto) [place] # (Auto) Eos # (Auto) Baso # (Auto) Absolute Nucleated RBC Nucleated RBC % Manual Slide Review WBC Morphology Platelet Estimate Platelet Morphology RBC Morph Micro Appear Sodium Potassium Chloride Carbon Dioxide Anion Gap BUN Creatinine Estimated GFR (MDRD) Glucose Lactic Acid 0.5 Calcium Troponin I B-Natriuretic Peptide 39 - Rads (name of study) chest xray Radiology: Prelim report reviewed, See rad report PD MEDICAL DECISION MAKING - ED course Complexity details: reviewed old records, reviewed results, re-evaluated patient, considered differential, d/w patient ED course: patient is in NAD during ED stay, speaking in full sentences without respiratory distress or difficulty. 99% pulse ox on room air, cxr demonstrates improvement in left-sided pneumonia compared to previous. She has infrequent cough during ED stay. Anemia is noted, not significantly changed from previous and comparable to values she had at time of discharge in July. She knows she is anemic and I advised her to f/u with PMD to discuss whether further treatment is needed (she has had iron transfusions in the past). Departure - Departure Disposition: Home, Self Care Clinical Impression: Pneumonia Qualifiers: Pneumonia type: due to unspecified organism Laterality: left Lung location: unspecified part of lung Qualified Code(s): J18.9 - Pneumonia, unspecified organism Condition: Good Instructions: ED Pneumonia Adult Follow-Up: Lisa Truong PA-C [Primary Care Provider] - (2-3 days ) Prescriptions: guaiFENesin/CODEINE [Robitussin AC] 5 - 10 ml PO Q6H PRN #100 udc PRN Reason: Cough Comments: Continue the antibiotic (levaquin) as prescribed. Discharge Date/Time: 02/08/18 00:11
[2018-02-07 22:22] LABS: BASOPHILS % (AUTO) 0.6 %; EOSINOPHILS # (AUTO) 0.1 10^3/uL (0.0-0.7); EOSINOPHILS % (AUTO) 2.8 %; HGB - HEMOGLOBIN 8.6 g/dL (12.0-16.0); LYMPHOCYTES % (AUTO) 24.1 %; MEAN CORPUSCULAR HEMOGLOBIN 24.6 pg (27.0-31.0); MEAN CORPUSCULAR HGB CONC 30.3 g/dL (32.0-36.0); MEAN CORPUSCULAR VOLUME 81.2 fL (81.0-99.0); MEAN PLATELET VOLUME 7.1 fL (7.9-10.8); MONOCYTES # (AUTO) 0.3 10^3/uL (0.0-1.0); MONOCYTES % (AUTO) 7.1 %; NEUTROPHILS # (AUTO) 2.8 10^3/uL (1.5-6.6); NEUTROPHILS % (AUTO) 65.4 %; PLT - PLATELET COUNT 221 10^3/uL (130-450); RED BLOOD COUNT 3.47 10^6/uL (4.20-5.40); RED CELL DISTRIBUTION WIDTH 20.1 % (12.0-15.0); WHITE BLOOD COUNT 4.3 x10^3/uL (4.8-10.8)
[2018-02-07 22:31] LABS: CREATININE 0.5 mg/dL (0.4-1.0)
[2018-02-07 22:34] LABS: PLATELET ESTIMATE, MANUAL NORMAL (130-450,000) (NORMAL); PLATELET MORPHOLOGY NORMAL APPEARANCE (NORMAL)
--- NOTE | 2018-02-07 22:43 | XRAY Report ---
Reason: cough, dyspnea Procedure Date: 02/07/2018 Accession Number: [id number] / [id number] Procedure: XR - Chest 2 View X-Ray CPT Code: 80212 FULL RESULT: EXAM: CHEST RADIOGRAPHY EXAM DATE: 02/07/2018 10:32 PM. CLINICAL HISTORY: Cough, dyspnea. COMPARISON: CHEST 2 VIEW 02/05/2018 9:18 AM. TECHNIQUE: 2 views. FINDINGS: Lungs/Pleura: Slightly improved appearance of the multifocal left mid as well as lung base region airspace disease. Artifact versus small opacity within the right midlung field is again seen, better visualized compared to the prior study. Right lung base calcified granulomata present. There is no large effusion or definite pneumothorax. Mediastinum: There is a medium sized hiatal hernia. Borderline enlargement of the cardiac silhouette. Other: Right upper quadrant clips indicate prior cholecystectomy. IMPRESSION: 1. Improving moderate multifocal left mid as well as lung base region airspace disease. Small right midlung field lateral opacity is relatively stable. 2. Mild enlargement of cardiac silhouette without overt CHF. 3. Medium-sized hiatal hernia. RADIA
[2018-02-07] MEDS ORDERED: cefTRIAXone 1 GM in SODIUM CHLORIDE 0.9% MINIBAG 100 ML IV STA (23:10)
[2018-02-07] MEDS ORDERED: KETOROLAC 60 MG/2 ML VIAL IVP STA (23:10)
[2018-02-08 00:04] VITALS: BP 157/111
== END 2018-02-08 00:11 | disposition home or self-care (01) ==
LOC: EDUNIT# → ED 21:49
DX: J18.9 Pneumonia, unspecified organism (principal)
CPT/HCPCS: 36415; 71046; 80048; 83605; 83880; 84484; 85025; 96365; 96375; 99283

== ENCOUNTER 2018-02-14 17:23 | Outpatient (CLI) | payer OTHER, MEDICAID | END 2018-02-14 17:24 | disposition critical access hospital (66) | LOC: EMS 17:23 | PROVIDERS: ATTEND Surgery | DX: R53.1 Weakness (principal); R05 Cough; R50.9 Fever, unspecified | CPT/HCPCS: A0425; A0429 ==

== ENCOUNTER 2018-02-14 18:12 | Emergency (ER) | payer OTHER, MEDICAID ==
[2018-02-14] MEDS ORDERED: MORPHINE ER 60 MG TABLET PO STA (18:21)
[2018-02-14] MEDS ORDERED: ACETAMINOPHEN 325 MG TABLET PO STA (18:21)
--- NOTE | 2018-02-14 18:23 | ED Physician Documentation ---
PD HPI DYSPNEA - Stated complaint Stated Complaint: WEAKNESS - Chief complaint Chief Complaint: Resp - History obtained from History obtained from: Patient, EMS - History of Present Illness Timing - onset: Today (Is a 57-year-old woman with recent diagnosis of pneumonia. Initially put on Zithromax but she felt ill and had diarrhea with that so was switched to levofloxacin 750 mg p.o. daily for 7 days. She was to have the last dose today. She also has a history of COPD and anemia. Starting this morning she became very tremulous and shaky and feeling worse. She does not say that her shortness of breath is any worse but she feels like her mind is not quite working right and had asked what day it was which is atypical for her. She was noted to be febrile in route with otherwise unremarkable vital signs.) Review of Systems Ten Systems: 10 systems reviewed and negative Constitutional: reports: Fever, Chills, Fatigue Cardiac: denies: Chest pain / pressure, Palpitations Respiratory: reports: Dyspnea, Cough GI: denies: Abdominal Pain, Nausea, Vomiting PD PAST MEDICAL HISTORY - Past Medical History Cardiovascular: DC Respiratory: COPD, Pneumonia Neuro: Alzhiemer's, Headaches, Migraines Endocrine/Autoimmune: None GI: GERD, Hiatal hernia, Pancreatitis : Incontinence Psych: Depression, Anxiety, Post traumatic stress disorder Musculoskeletal: Osteoarthritis, Fibromyalgia, Chronic back pain Derm: None - Past Surgical History Past Surgical History: Yes General: Bowel surgery - Present Medications Home Medications: Ambulatory Orders Medication Instructions Recorded Confirmed Albuterol Sulfate [Albuterol 2 puffs INH Q4H PRN 10/17/13 08/18/17 Sulfate Hfa] Tiotropium [place] [Spiriva] 1 puffs INH DAILY 10/17/13 08/18/17 Atorvastatin Calcium 40 mg PO QPM 08/18/17 08/18/17 Dicyclomine [Bentyl] 10 mg PO TID PRN 08/18/17 08/18/17 Donepezil [Aricept] 5 mg PO QPM 08/18/17 08/18/17 Escitalopram Oxalate [Lexapro] 20 mg PO QPM 08/18/17 08/18/17 Fluticasone [Flonase] 1 sprays ULYSSES BID PRN 08/18/17 08/18/17 Fluticasone/Salmeterol [Advair 1 puffs INH BID 08/18/17 08/18/17 250-50 Diskus] Ibuprofen [Motrin] 800 mg PO TIDWM PRN 08/18/17 08/18/17 Indomethacin [Indocin] 25 mg PO BIDWM PRN 08/18/17 08/18/17 Metoprolol Tartrate [Lopressor] 25 mg PO QPM 08/18/17 08/18/17 Mirtazapine [Remeron] 15 mg PO HS 08/18/17 08/18/17 Morphine Sulfate [Morphine Sulfate 30 mg PO 0600 08/18/17 08/18/17 ER] Nitroglycerin [Nitrostat] 0.4 mg SL Q5MIN PRN 08/18/17 08/18/17 Omeprazole [PriLOSEC] 20 mg PO DAILY PRN 08/18/17 08/18/17 Pantoprazole Sodium [Protonix] 40 mg PO QDAC 08/18/17 08/18/17 Prazosin HCl [Minipress] 5 mg PO QPM 08/18/17 08/18/17 Topiramate 50 mg PO QPM 08/18/17 08/18/17 Valacyclovir HCl [Valacyclovir] 500 mg PO DAILY 08/18/17 08/18/17 carBAMazepine ER [TEGretol XR] 200 mg PO BID 08/18/17 08/18/17 lamoTRIgine [Lamictal] 200 mg PO BID 08/18/17 08/18/17 tiZANidine [Zanaflex] 4 mg PO BID PRN 08/18/17 08/18/17 Albuterol 2.5 mg INH RTQ4H PRN #6 [facility] 08/20/17 Blood Pressure Test Kit-Large 1 each DAILY #1 kit 08/20/17 [Blood Pressure Monitor] Blood Sugar Diagnostic [Glucometer 1 each DAILY #30 strip 08/20/17 Strips] Blood-Glucose Meter [Glucometer] 1 each DAILY #1 each 08/20/17 Incontinence Pad,Liner,Disp [Pad 1 each MC TID PRN #90 each 08/20/17 For Women] Ipratropium [Atrovent] 0.5 mg INH RTTID #12 neb 08/20/17 Lancets 1 each DAILY #30 each 08/20/17 Levofloxacin [Levaquin] 750 mg PO DAILY #4 tablet 08/20/17 Lorazepam [Ativan] 1 mg PO BID PRN #8 tablet 08/20/17 Methylprednisolone [Medrol] 4 mg PO DAILY #1 tab.ds.pk 08/20/17 Psyllium [Metamucil] 1 packet PO DAILY #15 packet 08/20/17 oxyCODONE/ACET 5/325 [Percocet 5 2 tab PO Q6HR PRN #10 tablet 08/20/17 mg/325 mg] ARIPiprazole [Abilify] 5 mg 02/05/18 Aspirin 02/05/18 Atorvastatin [Lipitor] 40 mg 02/05/18 Azithromycin [Zithromax] 250 mg PO DAILY #6 tablet 02/05/18 Ondansetron [Ondansetron Odt] 02/05/18 Quetiapine Fumarate 100 mg PO 02/05/18 guaiFENesin/CODEINE [Robitussin AC] 5 ml PO Q6H PRN #60 ml 02/05/18 traZODone [Desyrel] 02/05/18 guaiFENesin/CODEINE [Robitussin AC] 5 - 10 ml PO Q6H PRN #100 udc 02/07/18 LORazepam [Ativan] 0.5 mg PO Q6H PRN #8 tablet 02/14/18 - Allergies Allergies/Adverse Reactions: Allergies Allergy/AdvReac Type Severity Reaction Status Date / Time diphtheria,tetanus,poliomyelitis Allergy Unknown Verified 02/07/18 21:54 va [Dip,Tet,Polio Vaccine] - Social History Does the pt smoke?: No Smoking Status: Never smoker Does the pt drink ETOH?: No - POLST POLST Status: Full Code PD ED PE NORMAL - Vitals Vital signs reviewed: Yes (Febrile) - General General: Alert and oriented X 3, No acute distress - HEENT HEENT: PERRL, EOMI - Neck Neck: Supple, no meningeal sign, No bony TTP - Cardiac Cardiac: RRR, No murmur - Respiratory Respiratory: No respiratory distress, Other (Diminished throughout) - Abdomen Abdomen: Soft, Non tender - Back Back: No CVA TTP, No spinal TTP - Derm Derm: Normal color, Warm and dry - Extremities Extremities: No edema, No calf tenderness / cord - Neuro Neuro: Alert and oriented X 3 Eye Opening: Spontaneous Motor: Obeys Commands Verbal: Oriented GCS Score: 15 Results - Vitals Vitals: Vital Signs - 24 hr 02/14/18 02/14/18 18:14 19:25 Temperature 38.4 C H 37.2 C Heart Rate 95 65 Respiratory 14 16 Rate Blood Pressure 143/97 H 112/83 H O2 Saturation 95 97 Oxygen O2 Source Room air - EKG (time done) 1831 Rate: Rate (enter#) (87) Rhythm: NSR [place]: Normal Intervals: Normal HI QRS: Normal Ischemia: Normal ST segments Computer interpretation: Agree with computer - Labs Labs: Laboratory Tests 02/14/18 02/14/18 02/14/18 19:15 19:15 19:15 WBC 10.8 RBC 3.55 L Hgb 8.9 L Hct 28.9 L MCV 81.5 MCH 25.0 L MCHC 30.7 L RDW 19.7 H Plt Count 231 MPV 6.9 L Neut # (Auto) 9.8 H Lymph # (Auto) 0.6 L [place] # (Auto) 0.3 Eos # (Auto) 0.0 Baso # (Auto) 0.0 Absolute Nucleated RBC 0.00 Nucleated RBC % 0.0 Manual Slide Review Indicated Platelet Estimate NORMAL (130-450,000) Platelet Morphology NORMAL APPEARANCE RBC Morph Micro Appear 2+ MICROCYTOSIS VBG pH VBG pCO2 VBG pO2 VBG HCO3 VBG Total CO2 VBG O2 Saturation VBG Base Excess Sodium 134 L Potassium 3.8 Chloride 105 Carbon Dioxide 21 Anion Gap 8.0 BUN 10 Creatinine 0.7 Estimated GFR (MDRD) 86 L Glucose 108 H Lactic Acid Calcium 8.0 L Total Bilirubin 0.5 AST 28 ALT 19 Alkaline Phosphatase 172 H Troponin I < 0.04 Total Protein 6.3 L Albumin 3.3 Globulin 3.0 Albumin/Globulin Ratio 1.1 Lipase 15 L Urine Color Urine Clarity Urine pH Ur Specific [place] Urine Protein Urine Glucose (UA) Urine Ketones Urine Occult Blood Urine Nitrite Urine Bilirubin Urine Urobilinogen Ur Leukocyte Esterase Ur Microscopic Review Urine Culture Comments Influenza A (Rapid) Influenza B (Rapid) 02/14/18 02/14/18 02/14/18 19:15 19:15 20:15 WBC RBC Hgb Hct MCV MCH MCHC RDW Plt Count MPV Neut # (Auto) Lymph # (Auto) [place] # (Auto) Eos # (Auto) Baso # (Auto) Absolute Nucleated RBC Nucleated RBC % Manual Slide Review Platelet Estimate Platelet Morphology RBC Morph Micro Appear VBG pH 7.401 VBG pCO2 36.3 L VBG pO2 60.2 H VBG HCO3 22.0 L VBG Total CO2 23.1 L VBG O2 Saturation 92.0 H VBG Base Excess -2.4 L Sodium Potassium Chloride Carbon Dioxide Anion Gap BUN Creatinine Estimated GFR (MDRD) Glucose Lactic Acid 0.9 Calcium Total Bilirubin AST ALT Alkaline Phosphatase Troponin I Total Protein Albumin Globulin Albumin/Globulin Ratio Lipase Urine Color YELLOW Urine Clarity CLEAR Urine pH 5.5 Ur Specific [place] 1.025 Urine Protein NEGATIVE Urine Glucose (UA) NEGATIVE Urine Ketones NEGATIVE Urine Occult Blood TRACE-INTA Urine Nitrite NEGATIVE Urine Bilirubin NEGATIVE Urine Urobilinogen 0.2 (NORMAL) Ur Leukocyte Esterase NEGATIVE Ur Microscopic Review NOT INDICATED Urine Culture Comments NOT INDICATED Influenza A (Rapid) Influenza B (Rapid) 02/14/18 21:05 WBC RBC Hgb Hct MCV MCH MCHC RDW Plt Count MPV Neut # (Auto) Lymph # (Auto) [place] # (Auto) Eos # (Auto) Baso # (Auto) Absolute Nucleated RBC Nucleated RBC % Manual Slide Review Platelet Estimate Platelet Morphology RBC Morph Micro Appear VBG pH VBG pCO2 VBG pO2 VBG HCO3 VBG Total CO2 VBG O2 Saturation VBG Base Excess Sodium Potassium Chloride Carbon Dioxide Anion Gap BUN Creatinine Estimated GFR (MDRD) Glucose Lactic Acid Calcium Total Bilirubin AST ALT Alkaline Phosphatase Troponin I Total Protein Albumin Globulin Albumin/Globulin Ratio Lipase Urine Color Urine Clarity Urine pH Ur Specific [place] Urine Protein Urine Glucose (UA) Urine Ketones Urine Occult Blood Urine Nitrite Urine Bilirubin Urine Urobilinogen Ur Leukocyte Esterase Ur Microscopic Review Urine Culture Comments Influenza A (Rapid) Negative Influenza B (Rapid) Negative - Rads (name of study) 2v chest Radiology: EMP read contemporaneously (normal) PD MEDICAL DECISION MAKING - ED course ED course: This is a 57-year-old woman with recent diagnosis of pneumonia finishing up antibiotics now with new fevers and feeling bad again but nothing focal. Her chest x-ray is normalized and her labs are reassuring from a sepsis standpoint and her anemia is a little better actually than it has been on recent visits. Her urine was negative. Her white count was normal. She had no lactic acidosis. We will obtain a flu swab, but more than likely it is a viral s yndrome at this point. Her major concern was that she is in pain management and has an upcoming appointment the day after [place] and is worried that she will be able to get down there and needed me to write a note to the doctors that she would not be able to travel for that. She has a lot of anxiety about filling her pain medication. For the tremulousness she really wanted something. I am already very concerned about polypharmacy she was she was given a limited number of a very low dose of Ativan. Departure - Departure Disposition: 01 Home, Self Care Clinical Impression: Anxiety and depression, Tremulousness Chronic pain Qualifiers: Chronic pain type: chronic pain syndrome Qualified Code(s): G89.4 - Chronic pain syndrome Fever Qualifiers: Fever type: due to other condition Qualified Code(s): R50.81 - Fever presenting with conditions classified elsewhere Condition: Good Record reviewed to determine appropriate education?: Yes Instructions: ED Viral Syndrome Prescriptions: LORazepam [Ativan] 0.5 mg PO Q6H PRN #8 tablet PRN Reason: Anxiety Comments: Call your doctor to arrange a follow-up appointment, make the next available appointment. In the interim, return anytime if worse or if new symptoms deve lop. Forms: Activity restrictions
--- NOTE | 2018-02-14 19:15 | XRAY Report ---
Reason: dyspnea fever Procedure Date: 02/14/2018 Accession Number: [id number] / [id number] Procedure: XR - Chest 2 View X-Ray CPT Code: 41549 FULL RESULT: EXAM: CHEST RADIOGRAPHY EXAM DATE: 02/14/2018 06:59 PM. CLINICAL HISTORY: Dyspnea fever. COMPARISON: 02/07/2018. TECHNIQUE: 2 views. FINDINGS: Lungs/Pleura: No focal opacities evident. No pleural effusion. No pneumothorax. Normal volumes. Mediastinum: Heart and mediastinal contours are unremarkable. Other: None. IMPRESSION: No evidence of a focal infiltrate. RADIA
[2018-02-14 19:27] LABS: VBG PCO2 36.3 mmHg (41-51); VBG PH 7.401 (7.31-7.41); VBG PO2 60.2 mmHg (25-47); VBG TOTAL CO2 23.1 mmol/L (24-29)
[2018-02-14 19:28] LABS: VBG BASE EXCESS -2.4 mmol/L (-2 - +2)
[2018-02-14 19:37] LABS: ALBUMIN 3.3 g/dL (3.2-5.5); ALBUMIN/GLOBULIN RATIO 1.1 (1.0-2.2); BILIRUBIN,TOTAL 0.5 mg/dL (0.2-1.0); CREATININE 0.7 mg/dL (0.4-1.0); TOTAL PROTEIN 6.3 g/dL (6.7-8.2)
[2018-02-14 19:41] LABS: BASOPHILS % (AUTO) 0.3 %; EOSINOPHILS % (AUTO) 0.3 %; HGB - HEMOGLOBIN 8.9 g/dL (12.0-16.0); LYMPHOCYTES # (AUTO) 0.6 10^3/uL (1.5-3.5); LYMPHOCYTES % (AUTO) 5.4 %; MEAN CORPUSCULAR HGB CONC 30.7 g/dL (32.0-36.0); MEAN CORPUSCULAR VOLUME 81.5 fL (81.0-99.0); MEAN PLATELET VOLUME 6.9 fL (7.9-10.8); MONOCYTES # (AUTO) 0.3 10^3/uL (0.0-1.0); NEUTROPHILS # (AUTO) 9.8 10^3/uL (1.5-6.6); PLT - PLATELET COUNT 231 10^3/uL (130-450); RED BLOOD COUNT 3.55 10^6/uL (4.20-5.40); RED CELL DISTRIBUTION WIDTH 19.7 % (12.0-15.0); WHITE BLOOD COUNT 10.8 x10^3/uL (4.8-10.8)
[2018-02-14 20:18] LABS: PLATELET ESTIMATE, MANUAL NORMAL (130-450,000) (NORMAL); PLATELET MORPHOLOGY NORMAL APPEARANCE (NORMAL)
[2018-02-14 20:35] LABS: BILIRUBIN,URINE NEGATIVE (NEGATIVE); GLUCOSE, URINE (UA) NEGATIVE (NEGATIVE); KETONES,URINE (UA) NEGATIVE (NEGATIVE); LEUKOCYTE ESTERASE, URINE NEGATIVE (NEGATIVE); NITRITE,URINE NEGATIVE (NEGATIVE); OCCULT BLOOD,URINE TRACE-INTA (NEGATIVE); PH,URINE 5.5 PH (5.0-7.5); PROTEIN,URINE NEGATIVE (NEGATIVE); UROBILINOGEN,URINE 0.2 (NORMAL) E.U./dL (NORMAL)
[2018-02-14 20:37] LABS: CLARITY,URINE CLEAR (CLEAR)
[2018-02-14] MEDS ORDERED: LORazepam 0.5 MG TABLET PO STA (21:31)
[2018-02-14 21:52] VITALS: BP 118/62
== END 2018-02-14 22:10 | disposition home or self-care (01) ==
LOC: EDUNIT# → ED 18:12
DX: F41.8 Other specified anxiety disorders (principal); R25.1 Tremor, unspecified; G89.4 Chronic pain syndrome; R50.81 Fever presenting with conditions classified elsewhere; G30.9 Alzheimer's disease, unspecified; F02.80 Dementia in other diseases classified elsewhere, unspecified severity, without behavioral disturbance, psychotic disturbance, mood disturbance, and anxiety; Z79.82 Long term (current) use of aspirin; J44.9 Chronic obstructive pulmonary disease, unspecified
CPT/HCPCS: 36415; 71046; 80053; 81003; 82803; 83605; 83690; 84484; 85025; 87040; 87275; 87276; 93005; 99283; 99284; A9270; 81001; 87086

== ENCOUNTER 2018-04-17 11:28 | Outpatient (CLI) | payer OTHER, MEDICAID ==
[2018-04-17 18:59] LABS: % IRON SATURATION 11 % (20-50); ALBUMIN 3.5 g/dL (3.2-5.5); ALKALINE PHOSPHATASE 119 IU/L (42-121); ALT ALANINE AMINOTRANSFERASE 17 IU/L (10-60); AST ASPARTATE AMINOTRANSFERASE 25 IU/L (10-42); BILIRUBIN,TOTAL 0.4 mg/dL (0.2-1.0); BUN - BLOOD UREA NITROGEN 8 mg/dL (6-20); CALCIUM 8.5 mg/dL (8.5-10.3); CARBON DIOXIDE - CO2 21 mmol/L (21-32); CHLORIDE 109 mmol/L (101-111); CHOL/HDL RATIO 2.4 (<4.4); CHOLESTEROL 139 mg/dL; CREATININE 0.6 mg/dL (0.4-1.0); GFR - MDRD 103 (>89); GLUCOSE 84 mg/dL (70-100); HDL CHOLESTEROL 58 mg/dL; IRON 39 ug/dL (28-170); LDL CHOLESTEROL,CALCULATED 63 mg/dL; LDL/HDL RATIO 1.1 (<4.4); SODIUM 140 mmol/L (135-145); TOTAL IRON BINDING CAPACITY 357 ug/dL (250-450); TOTAL PROTEIN 7.1 g/dL (6.7-8.2); TRANSFERRIN 255 mg/dL (192-382); VLDL CHOLESTEROL 18 mg/dL
== END 2018-04-17 11:29 | disposition home or self-care (01) ==
LOC: LAB.F 11:28
PROVIDERS: ATTEND Family Medicine
DX: E78.00 Pure hypercholesterolemia, unspecified (principal); I10 Essential (primary) hypertension; D50.9 Iron deficiency anemia, unspecified
CPT/HCPCS: 36415; 80053; 80061; 82728; 83540; 83721; 84466; 85025

== ENCOUNTER 2018-04-28 08:00 | Outpatient (CLI) | payer OTHER, MEDICAID ==
[2018-04-28 20:39] LABS: BASOPHILS % (AUTO) 0.7 %; EOSINOPHILS # (AUTO) 0.1 10^3/uL (0.0-0.7); EOSINOPHILS % (AUTO) 1.7 %; HGB - HEMOGLOBIN 9.8 g/dL (12.0-16.0); LYMPHOCYTES % (AUTO) 25.9 %; MEAN CORPUSCULAR HEMOGLOBIN 24.9 pg (27.0-31.0); MEAN CORPUSCULAR HGB CONC 30.4 g/dL (32.0-36.0); MEAN CORPUSCULAR VOLUME 81.7 fL (81.0-99.0); MEAN PLATELET VOLUME 8.2 fL (7.9-10.8); MONOCYTES # (AUTO) 0.2 10^3/uL (0.0-1.0); MONOCYTES % (AUTO) 6.1 %; NEUTROPHILS # (AUTO) 2.6 10^3/uL (1.5-6.6); NEUTROPHILS % (AUTO) 65.6 %; PLT - PLATELET COUNT 165 10^3/uL (130-450); RED BLOOD COUNT 3.94 10^6/uL (4.20-5.40); RED CELL DISTRIBUTION WIDTH 20.2 % (12.0-15.0); WHITE BLOOD COUNT 3.9 x10^3/uL (4.8-10.8)
[2018-04-28 21:51] LABS: PLATELET ESTIMATE, MANUAL NORMAL (130-450,000) (NORMAL); PLATELET MORPHOLOGY NORMAL APPEARANCE (NORMAL)
== END 2018-04-28 23:59 | disposition home or self-care (01) ==
LOC: LAB.F 08:00
PROVIDERS: ATTEND Family Medicine
DX: D50.9 Iron deficiency anemia, unspecified (principal)
CPT/HCPCS: 36415; 85025